=== PATIENT | male | born 1995 | race Hispanic/Latino ===

== ENCOUNTER 2021-10-05 22:06 | Emergency (ER) | payer MEDICAID ==
[~2021-10-05] VITALS: Ht 162.6 cm; Wt 74.4 kg
[~2021-10-05 22:06] MED LIST: ATOR40TA69 PO; INSU100C6 SQ; INSU100I26 SQ; METF-444 PO; PANT40TA55 PO; PRED20TA3 PO; SULF1TAB89 PO; TACR5CAP8 PO; TORS100T16 PO
[2021-10-05] MEDS ORDERED: HYDROCODONE/ACETAMINOPHEN 5/325 MG TAB PO ONE (23:00)
[2021-10-05] MEDS ORDERED: ACETAMINOPHEN WITH CODEINE 1 TAB TAB PO ONE (23:30)
[2021-10-05] MEDS ORDERED: ACET-2079 PO (23:36)
[2021-10-05] MEDS ORDERED: RIVA1TAB PO (23:36)
[2021-10-05] MEDS ORDERED: ENOXAPARIN SODIUM 80 MG/0.8 ML SQ SCH (23:45)
[2021-10-05 23:46] VITALS: BP 134/78
[2021-10-05] MEDS ORDERED: ENOXAPARIN SODIUM 100 MG/1 ML SQ ONE (23:50)
== END 2021-10-05 23:59 | disposition home or self-care (01) ==
LOC: EDH 22:06
DX: I82.621 Acute embolism and thrombosis of deep veins of right upper extremity (principal); E11.9 Type 2 diabetes mellitus without complications; E78.00 Pure hypercholesterolemia, unspecified; I10 Essential (primary) hypertension; Z79.4 Long term (current) use of insulin; Z79.52 Long term (current) use of systemic steroids; Z79.899 Other long term (current) drug therapy
CPT/HCPCS: 99284; 93971; 96372; J1650

== ENCOUNTER 2022-08-03 00:13 | Emergency (ER) | payer MEDICAID ==
[~2022-08-03] VITALS: Ht 162.6 cm; Wt 77.6 kg
[~2022-08-03 00:13] MED LIST changes: +ACET-2079 PO; +RIVA1TAB PO
[2022-08-03] MEDS ORDERED: ONDANSETRON 4MG INJ IVP ONE (01:30)
[2022-08-03] MEDS ORDERED: LACTATED RINGERS 1000ML 1,000 ML IV ONE (01:30)
[2022-08-03] MEDS ORDERED: FAMOTIDINE 20MG TAB PO ONE (01:30)
[2022-08-03] MEDS ORDERED: FAMOTIDINE 20MG VIAL IV ONE (01:40)
[2022-08-03] MEDS ORDERED: IBUPROFEN 200 MG TAB ONE (01:41)
[2022-08-03] MEDS ORDERED: IBUPROFEN 400 MG TABLET ONE (01:42)
[2022-08-03 01:46] LABS: BASOPHILS % (AUTO) 0.3 % (0.0-5.0); EOSINOPHILS % (AUTO) 0.1 % (0.0-8.0); HEMATOCRIT 44.8 % (42-54); LYMPHOCYTES % (AUTO) 3.8 % (21.0-51.0); MEAN CORPUSCULAR HEMOGLOBIN 26.5 pg (27.0-33.0); MEAN CORPUSCULAR HGB CONC 32.8 g/dL (32.0-36.0); MEAN CORPUSCULAR VOLUME 80.7 fL (79-99); MONOCYTES % (AUTO) 6.8 % (3.0-13.0); NEUTROPHILS % (AUTO) 87.9 % (40.0-77.0); PLATELET COUNT (AUTO) 347 K/uL (130-400); RED BLOOD CELL COUNT(AUTO) 5.55 MIL/uL (4.50-6.20); RED CELL DISTRIBUTION WIDTH 13.5 % (11.0-15.5); WHITE BLOOD COUNT (AUTO) 27.9 K/uL (4.8-10.8)
[2022-08-03 01:54] LABS: CARBON DIOXIDE 26 mmol/L (21-32); CHLORIDE 101 mmol/L (101-111); CREATININE 1.4 mg/dL (0.5-1.5); GLOMERULAR FILTR. RATE CALC 71 mL/min (>90); GLUCOSE,RANDOM 113 mg/dL (70-105); POTASSIUM 3.5 mmol/L (3.5-5.1); SODIUM SERUM 134 mmol/L (136-145); UREA NITROGEN, BLOOD 28 mg/dL (7-18)
[2022-08-03 01:58] LABS: ALANINE AMINOTRANSFERASE 14 U/L (12-78); ALBUMIN 0.9 g/dL (3.5-5.0); ASPARTATE AMINOTRANSFERASE 13 U/L (10-37); TOTAL PROTEIN, SERUM 5.2 g/dL (6.0-8.3)
[2022-08-03 02:01] LABS: LIPASE < 50 U/L (114-286)
[2022-08-03 02:02] LABS: APPEARANCE,URINE CLEAR (CLEAR); BILIRUBIN,URINE NEGATIVE (NEGATIVE); COLOR,URINE YELLOW (YELLOW); GLUCOSE, URINE (UA) NEGATIVE (NEGATIVE); KETONES,URINE NEGATIVE (NEGATIVE); LEUKOCYTE ESTERASE ,URINE NEGATIVE Leu/uL (NEGATIVE); NITRATE,URINE NEGATIVE (NEGATIVE); OCCULT BLOOD,URINE MODERATE (NEGATIVE); PROTEIN,URINE 600 mg/dL (NEGATIVE); UROBILINOGEN,URINE 0.2 mg/dL (0.2-1.0)
[2022-08-03 02:04] LABS: MUCUS,URINE RARE LPF (None Seen); RBC,URINE 0-1 /HPF (0-1); SQUAMOUS EPITHELIAL CELL,UR RARE /HPF (0-2); WBC,URINE 0-1 /HPF (0-1)
[2022-08-03 03:19] VITALS: BP 122/76
[2022-08-03] MEDS ORDERED: METRONIDAZOLE 500 MG TABLET PO SCH (03:30)
[2022-08-03] MEDS ORDERED: METR-172 PO (03:32)
[2022-08-03] MEDS ORDERED: ONDA4TAB10 PO (03:32)
== END 2022-08-03 04:07 | disposition home or self-care (01) ==
LOC: EDH 00:13
DX: A04.9 Bacterial intestinal infection, unspecified (principal); E11.9 Type 2 diabetes mellitus without complications; E78.00 Pure hypercholesterolemia, unspecified; I10 Essential (primary) hypertension; Z79.4 Long term (current) use of insulin; Z79.52 Long term (current) use of systemic steroids; Z79.84 Long term (current) use of oral hypoglycemic drugs; Z79.899 Other long term (current) drug therapy; Z20.822 Contact with and (suspected) exposure to COVID-19
CPT/HCPCS: 99284; 96374; 87635; 96361; 96375; 80053; 83690; 85025; 87804 ×2; 81001; 36415; 74021; C9803; J7120; J2405; S0028; J3490

== ENCOUNTER 2024-04-19 03:01 | Inpatient (IN) | payer MEDICAID ==
[2024-04-19] VITALS (37 sets, daily range): BP systolic 104–157; BP diastolic 63–96; PULSE 85–125; RESP 9–111; TEMP 97–99.1; O2SAT 96–98
[~2024-04-19] VITALS: Ht 162.6 cm; Wt 85.3 kg
[~2024-04-19 03:01] MED LIST changes: +METR-172 PO; +ONDA-243 PO
[2024-04-19] MEDS: TICAGrelor 90 MG TABLET PO ONE (03:26)
[2024-04-19] MEDS: TICAGrelor 90 MG TABLET ONE (03:26)
[2024-04-19] MEDS: ASPIRIN 325MG TAB PO ONE (03:27)
[2024-04-19] MEDS: HEParin 5,000 UNIT VIAL IV ONE (03:27)
[2024-04-19] MEDS: FENTanyl CITRate PF 50 MCG/1 ML 2ML VIAL ONE (03:29)
[2024-04-19] MEDS ORDERED: cloPIDOgrel 300MG TAB PO ONE (03:30)
[2024-04-19] MEDS: HEParin 25,000 UNITS/250ML D5W 250 ML IV SCH (03:30)
[2024-04-19] MEDS: HEParin 5,000 UNIT VIAL ONE (03:31)
[2024-04-19] MEDS: HEParin 25,000 UNITS/250ML D5W 250 ML IV ONE (03:31)
[2024-04-19] MEDS: FENTanyl CITRate PF 50 MCG/1 ML 2ML VIAL IVP ONE (03:32)
[2024-04-19 03:35] LABS: ABG BASE EXCESS 0.6 mmol/L (-2.0-3.0); ABG HCO3 22.7 mmol/L (21.0-28.0); ABG OXYGEN SATURATION 97.7 % (94.0-98.0); ABG PCO2 30 mmHg (35-48); ABG PH 7.495 (7.350-7.450); CARBON MONOXIDE 0.3 % (0.5-1.5); HHb 2.3; PO2, ARTERIAL BG 97.8 mmHg (83.0-108.0); VENT MODE, BG ROOMAIR (ROOM AIR)
--- NOTE | 2024-04-19 03:40 | ERN ---
General Chief Complaint: Chest Pain Stated Complaint: CHEST PAIN Time Seen by MD: 03:06 History of Present Illness Initial Comments 29-year-old male who presents for chest pain beginning about 90 minutes prior to arrival (began around 2:00 a.m. on 04/19/2024). Patient reports left-sided chest pressure radiates to the left shoulder. Moderate to severe. It has been constant for the last hour and a half or so. He denies any shortness of breath, dizziness, vomiting, diarrhea, sore throat or URI type symptoms. He denies any drug abuse. He has never had cardiac disease before. Medical history: Nephrotic syndrome (possibly autoimmune), diabetes, hypertension, high cholesterol Allergies: Coded Allergies: rituximab (Unverified Allergy, Mild, 09/27/21) SWELLING Home Meds Active Scripts Metronidazole (Metronidazole) 500 Mg Tablet, 500 MG PO TID for 10 Days, #30 TAB Prov:KATHLEEN GILL Sr., MD 08/03/22 Ondansetron (Ondansetron Odt) 4 Mg Tab.rapdis, 4 MG PO Q6HPRN PRN for nausea, #16 TAB 0 Refills Prov:KATHLEEN GILL Sr., MD 08/03/22 Acetaminophen with Codeine (Acetaminophen-Cod #3 Tablet) 1 Each Tablet, 1 TAB PO Q6H PRN for PAIN LEVEL 7 TO 10, #15 TAB Prov:DELGADO CARTER MD 10/05/21 Rivaroxaban (Xarelto) 1 Each Tab.ds.pk, 1 EACH PO AD, #1 KIT Prov:DELGADO CARTER MD 10/05/21 Pantoprazole Sodium (Protonix) 40 Mg Ectab, 40 MG PO DAILY for 90 Days, #90 TAB.EC Prov:MORENO DAILEY Jr., MD 10/01/21 Prednisone (Prednisone) 20 Mg Tablet, 60 MG PO DAILY for 30 Days, #90 TAB Prov:MORENO DAILEY Jr., MD 10/01/21 Atorvastatin Calcium (LIPITOR) 40 Mg Tablet, 40 MG PO HS for 90 Days, #90 TAB Prov:MORENO DAILEY Jr., MD 10/01/21 Reported Medications Metformin HCl (Metformin HCl) 500 Mg Tablet, 500 MG PO BID, TAB 09/27/21 Tacrolimus (Tacrolimus) 5 Mg Capsule, 5 MG PO BID, CAP 09/27/21 Insulin Aspart (Novolog) 100 Unit/1 Ml Cartridge, 10 UNITS SQ TIDMEALS, CARTRIDGE 09/27/21 Torsemide (Torsemide) 100 Mg Tablet, 100 MG PO DAILY, TAB 09/27/21 Sulfamethoxazole/Trimethoprim (Sulfamethoxazole-Tmp Ss Tablet) 1 Each Tablet, 1 EACH PO BID, TAB 09/27/21 Insulin Glargine,Hum.rec.anlog (Basaglar Kwikpen U-100) 100 Unit/1 Ml Insuln.pen, 50 UNIT SQ DAILY, SYRINGE 09/27/21 Past Medical History Past Medical History: Diabetes-Type II, High Cholesterol, Hypertension, Other Medical History Other: NEPHROTIC SYNDROME Past Surgical History: None Surgical History Other: KIDNEY BIOPSY Social History Social History: Negative, Lives with family ROS Dictation CONSTITUTIONAL: No chills, no fever, no weakness, no diaphoresis, no malaise. HEAD/FACE: No signs of trauma. EENT: No eye pain, no blurred vision, no tearing, no double vision, no ear pain, no ear discharge, no nose pain, no nasal congestion, no throat pain, no throat swelling, no mouth pain. RESPIRATORY: No cough, no orthopnea, no SOB, no stridor, no wheezing. CARDIOVASCULAR: Chest pain GASTROINTESTINAL/ABDOMINAL: No abdominal pain, no constipation, no diarrhea, no nausea, no vomiting. GENITOURINARY: No abnormal discharge, no dysuria, no frequent urination, no hematuria. No complaints of pain in the genitals. MUSCULOSKELETAL: No back pain, no gout, no joint pain, no joint swelling, no muscle pain, no muscle stiffness, no neck pain. INTEGUMENTARY: No change in color, no change in hair/nails, no dryness, no lesion, no lumps, no rash. NEUROLOGICAL/PSYCH: No anxiety, not depressed, no emotional problem, no headache, no numbness, no pre-existing deficit, no history of seizures, no tremors, no weakness. HEMATOLOGIC/LYMPHATIC: Not anemic, no history of blood clots, no apparent bleeding, no bruising, glands not swollen. All Systems Negative, Except as Noted. Physical Exam Physical Exam Dictation VITAL SIGNS: Reviewed. GENERAL APPEARANCE: Alert, oriented x3, moderate distress due to pain HEAD AND FACE: Non-traumatic. EYES: PERRL, pink conjunctivas, eyelid no trauma, anterior chamber clear. EARS: Pinnas intact and no signs of trauma or erythema. Ear canals clear and no discharge. TMs no erythema. NOSE: No discharge, no bleeding. OROPHARYNX: Mouth normal, teeth no caries, tongue pink. Pharynx clear, no erythema. Tonsils no exudates, no abscesses noted. Mucous membrane moist. NECK: Supple, non-tender, no thyromegaly, no masses, no JVD, no bruits. BREAST: Deferred. CHEST: No tenderness, no crepitus, no paradoxical movement, no retractions. LUNGS: Clear, well-ventilated, symmetric, no rales, no wheezing, no rhonchi, no stridor, good breath sounds bilaterally. HEART: Regular rate, regular rhythm, no murmur, no gallops. VASCULAR: No peripheral edema. ABDOMEN: Soft, positive bowel sounds, nondistended, no guarding, nontender, no rebound, no masses no hepatomegaly, no splenomegaly, no Wilson's sign, no hernias. RECTAL: Deferred. GENITAL: Deferred. NEUROLOGICAL: Normal speech, gross motor function intact, gross sensory function intact. MUSCULOSKELETAL: Neck nontender, full range of motion, back nontender, full range of motion. EXTREMITIES: Nontender, full range of motion. SKIN: Color pink, dry, no turgor, no rash, no lacerations, no abrasions, no contusions. LYMPHATICS: Deferred. Results Laboratory and Microbiology Lab and Micro Result Laboratory Tests Test 04/19/24 03:05 04/19/24 03:15 04/19/24 03:34 Whole Blood Glucose 191 MG/DL (70-110) H White Blood Count 22.7 K/uL (4.8-10.8) H Red Blood Count 6.27 MIL/uL (4.50-6.20) H Hemoglobin 16.4 g/dL (14.0-18.0) Hematocrit 51.0 % (42-54) Mean Corpuscular Volume 81.3 fL (79-99) Mean Corpuscular Hemoglobin 26.2 pg (27.0-33.0) L Mean Corpuscular Hemoglobin Concent 32.2 g/dL (32.0-36.0) Red Cell Distribution Width 13.7 % (11.0-15.5) Platelet Count 457 K/uL (130-400) H Mean Platelet Volume 9.8 fL (7.5-10.5) Immature Granulocyte % (Auto) 1.0 % (0-1) Neutrophils (%) (Auto) 69.7 % (40.0-77.0) Lymphocytes (%) (Auto) 21.9 % (21.0-51.0) Monocytes (%) (Auto) 6.5 % (3.0-13.0) Eosinophils (%) (Auto) 0.5 % (0.0-8.0) Basophils (%) (Auto) 0.4 % (0.0-5.0) Neutrophils # (Auto) 15.8 K/uL (1.8-7.7) H Lymphocytes # (Auto) 5.0 K/uL (1.0-4.8) H Monocytes # (Auto) 1.5 K/uL (0.1-1.0) H Eosinophils # (Auto) 0.11 K/uL (0.00-0.70) Basophils # (Auto) 0.09 K/uL (0.00-0.20) Absolute Immature Granulocyte (auto 0.23 K/uL (0-1) Nucleated Red Blood Cells 0.0 % (0.0-0.19) Prothrombin Time 10.5 SEC (9.6-11.6) Prothromb Time International Ratio <= 0.93 (0.85-1.15) Activated Partial Thromboplast Time 24.5 SEC (26.3-35.5) L Sodium Level 139 mmol/L (136-145) Potassium Level 3.7 mmol/L (3.5-5.1) Chloride Level 103 mmol/L (101-111) Carbon Dioxide Level 33 mmol/L (21-32) H Blood Urea Nitrogen 33 mg/dL (7-18) H Creatinine 1.3 mg/dL (0.5-1.3) Glomerular Filtration Rate Calc 77 mL/min (>90) Random Glucose 198 mg/dL (70-105) H Total Calcium 7.7 mg/dL (8.5-10.1) L Troponin I High Sensitivity 77 ng/L (4-75) *H Blood Gas Specimen Type Arterial Arterial Blood pH 7.495 (7.350-7.450) Arterial Blood Partial Pressure CO2 30 mmHg (35-48) L Arterial Blood Partial Pressure O2 97.8 mmHg (83.0-108.0) Arterial Blood HCO3 22.7 mmol/L (21.0-28.0) Arterial Blood Oxygen Saturation 97.7 % (94.0-98.0) Arterial Blood Base Excess 0.6 mmol/L (-2.0-3.0) Hemoglobin (Blood Gas) 16.3 g/dL (13.5-17.5) Sodium (Blood Gas) 134 MMOL/L (136-145) L Bedside Potassium (Blood Gas) 3.8 MMOL/L (3.4-4.5) Bedside Chloride (Blood Gas) 103 MMOL/L (98-107) Bedside Glucose (Blood Gas) 219 MG/DL (65-95) H Bedside Ionized Calcium (Blood Gas) 1.18 MMOL/L (1.15-1.33) Bedside Lactic Acid (Blood Gas) 1.92 MMOL/L (0.36-0.75) H Blood Gas Temperature 37.0 CELSIUS (35.5-37.0) Blood Gas Vent Mode ROOMAIR (ROOM AIR) FiO2 21.0 % Blood Gas Specimen Comment RB [facility] CC: Chest pain Historian: Patient Limitations by social determinants of health: None Comorbidities: Nephritic syndrome possibly autoimmune mediated, immunosuppression therapy, diabetes, hypertension, high cholesterol Differential diagnosis: ACS, PE, cocaine abuse, electrolyte abnormality, infectious disease, other. Initial vital signs: Mild hypertension 143/92, otherwise stable and remained stable in the ER. I was evaluated the patient, in an EKG was performed. It was a STEMI. EKG ( independently interpreted by me ): Sinus rhythm, rate of 82, normal axis, good R-wave progression. ST-elevation leads two three AVF, proximally for small boxes. Reciprocal ST depression leads one and aVL. I contacted the on-call sewage reticulation drafting officer, Dr. Villaseñor. He reviewed the EKG. He recommends activating the dairy laboratory technician. cardiac cath lab technologist activated. Patient given aspirin, Brilinta, heparin, fentanyl IV. ABG this unremarkable, electrolytes are all stable. Patient went to the dairy laboratory technician immediately. Hospitalist consulted for an admission. ED Course Orders Procedure Category Date Status Time Cbc With Differential LAB 04/19/24 Complete 03:03 Basic Metabolic Panel LAB 04/19/24 Complete 03:03 Troponin I High LAB 04/19/24 Complete Sensitivity 03:03 Pt And Ptt LAB 04/19/24 Complete 03:03 Urinalysis Profile LAB 04/19/24 Logged 03:03 Drug Screen Urine LAB 04/19/24 Logged 03:03 12 Lead Ekg Tracing- EKG 04/19/24 Logged Technical 03:03 Chest 1vw RAD 04/19/24 Taken 03:03 Arterial Blood Gas RT 04/19/24 Transmitted 03:06 Heparin 5,000 Unit PHA 04/19/24 Complete Vial (Heparin 5,000 U 03:18 Heparin 25,000 PHA 04/19/24 Complete Units/250ml D5w 03:19 Aspirin 325mg Tab PHA 04/19/24 Complete (Aspirin 325mg Tab) 03:30 Heparin 5,000 Unit PHA 04/19/24 Complete Vial (Heparin 5,000 U 03:30 Heparin 25,000 PHA 04/19/24 In Process Units/250ml D5w 03:30 Clopidogrel 300mg Tab PHA 04/19/24 Complete (Plavix 300mg Tab) 03:30 Fentanyl Citrate Pf PHA 04/19/24 Complete 0.05 Mg/Ml (Fentanyl 03:30 12 Lead Ekg Tracing- EKG 04/19/24 Logged Technical 03:20 12 Lead Ekg Tracing- EKG 04/19/24 Logged Technical 03:20 Ticagrelor (Brilinta) PHA 04/19/24 Complete 03:30 Director Women Procedure CATH 04/19/24 In Process Request 03:30 Ticagrelor (Brilinta) PHA 04/19/24 Complete 03:23 Director Women Procedure CATH 04/19/24 Logged Request 03:24 Fentanyl Citrate Pf PHA 04/19/24 Complete 0.05 Mg/Ml (Fentanyl 03:26 Arterial Blood Gas LAB 04/19/24 Complete Arterial + 03:34 Admit Orders ADM 04/19/24 Transmitted 03:41 Lidocaine Hcl PHA 04/19/24 Complete 400mg/20ml (Lidocaine 03:51 Iohexol (Omnipaque) PHA 04/19/24 Complete 03:51 Verapamil Hcl PHA 04/19/24 Complete (Calan/Isoptin) 03:51 Heparin 10,000 PHA 04/19/24 Complete Unit/10ml (Heparin 03:51 Heparin-Ns 1,000 PHA 04/19/24 Complete Unit/500 Ml 03:51 Nitroglycerin 50mg PHA 04/19/24 Complete Vial (Tridil 50mg/10m 03:51 Fentanyl Citrate Pf PHA 04/19/24 Complete 0.05 Mg/Ml (Fentanyl 04:10 Midazolam Hcl (Versed) PHA 04/19/24 Complete 04:10 Midazolam Hcl (Versed) PHA 04/19/24 Complete 04:24 Eptifibatide PHA 04/19/24 Complete (Integrilin) 04:33 Eptifibatide PHA 04/19/24 Complete 75mg/100ml Bottle 04:33 Atropine 1mg Syg PHA 04/19/24 Complete (Atropine 1mg Syg) 04:33 Eptifibatide PHA 04/19/24 Complete (Integrilin) 04:39 Heparin-Ns 1,000 PHA 04/19/24 Complete Unit/500 Ml 04:43 Iohexol (Omnipaque) PHA 04/19/24 Complete 04:43 Current Medications Medications (Trade) Dose Ordered Sig/Madeline Route PRN Reason Start Time Stop Time Status Last Admin Dose Admin Aspirin (Aspirin 325mg Tab) 325 mg ONCE ONCE PO 04/19/24 03:30 04/19/24 03:31 DC 04/19/24 03:27 Atropine Sulfate (Atropine 1mg Syg) 1 mg STK-MED ONCE IVP 04/19/24 04:33 04/19/24 04:34 DC Clopidogrel Bisulfate (plaVIX 300MG TAB) 600 mg ONCE ONCE PO 04/19/24 03:30 04/19/24 03:22 DC Eptifibatide 100 ml @ As Directed STK-MED ONCE IV 04/19/24 04:33 04/19/24 04:33 DC Eptifibatide (Integrilin) 20 mg STK-MED ONCE IVP 04/19/24 04:33 04/19/24 04:33 DC Eptifibatide (Integrilin) 20 mg STK-MED ONCE IVP 04/19/24 04:39 04/19/24 04:39 DC Fentanyl Citrate (FENTanyl CITRate PF 50 MCG/ 1 ML 2ML VIAL) 50 mcg ONCE ONCE IVP 04/19/24 03:30 04/19/24 03:31 DC 04/19/24 03:32 Fentanyl Citrate (FENTanyl CITRate PF 50 MCG/ 1 ML 2ML VIAL) 100 mcg STK-MED ONCE .ROUTE 04/19/24 03:26 04/19/24 03:26 DC Fentanyl Citrate (FENTanyl CITRate PF 50 MCG/ 1 ML 2ML VIAL) 100 mcg STK-MED ONCE .ROUTE 04/19/24 04:10 04/19/24 04:11 DC Heparin Sodium (Porcine) (HEParin 10,000 UNIT/10ML) 10,000 unit STK-MED ONCE .ROUTE 04/19/24 03:51 04/19/24 03:51 DC Heparin Sodium (Porcine) (HEParin 5,000 UNIT VIAL) 5,000 unit ONCE ONCE IV 04/19/24 03:30 04/19/24 03:31 DC 04/19/24 03:27 Heparin Sodium (Porcine) (HEParin 5,000 UNIT VIAL) 5,000 unit STK-MED ONCE .ROUTE 04/19/24 03:18 04/19/24 03:18 DC Heparin Sodium/ Dextrose 250 ml @ As Directed STK-MED ONCE IV 04/19/24 03:19 04/19/24 03:19 DC Heparin Sodium/ Dextrose 250 ml @ 0 mls/hr PROTOCOL IV 04/19/24 03:30 05/19/24 03:29 04/19/24 03:30 Heparin Sodium/ Sodium Chloride 500 ml @ As Directed STK-MED ONCE IV 04/19/24 04:43 04/19/24 04:43 DC Heparin Sodium/ Sodium Chloride 1,000 ml @ As Directed STK-MED ONCE IV 04/19/24 03:51 04/19/24 03:52 DC Iohexol (Omnipaque) 75 ml STK-MED ONCE IV 04/19/24 04:43 04/19/24 04:44 DC Iohexol (Omnipaque) 35,000 mg STK-MED ONCE IV 04/19/24 03:51 04/19/24 03:51 DC Lidocaine HCl (Lidocaine HCl 400mg/20ml) 20 ml STK-MED ONCE .ROUTE 04/19/24 03:51 04/19/24 03:51 DC Midazolam HCl (Versed) 2 mg STK-MED ONCE .ROUTE 04/19/24 04:10 04/19/24 04:11 DC Midazolam HCl (Versed) 2 mg STK-MED ONCE .ROUTE 04/19/24 04:24 04/19/24 04:24 DC Nitroglycerin (Tridil 50mg/ 10ml) 50 mg STK-MED ONCE .ROUTE 04/19/24 03:51 04/19/24 03:52 DC Ticagrelor (BRILinta) 90 mg STK-MED ONCE .ROUTE 04/19/24 03:23 04/19/24 03:24 DC Ticagrelor (BRILinta) 180 mg ONCE ONCE PO 04/19/24 03:30 04/19/24 03:31 DC 04/19/24 03:26 Verapamil HCl (Calan/Isoptin) 5 mg STK-MED ONCE .ROUTE 04/19/24 03:51 04/19/24 03:51 DC Vital Signs Date Time Temp Pulse Resp B/P (MAP) Pulse Ox O2 Delivery O2 Flow Rate FiO2 04/19/24 03:36 96 18 143/92 97 Room Air* 0 21 04/19/24 03:13 69 19 149/99 97 Room Air* 0 21 04/19/24 03:05 97.5 82 18 167/99 98 Room Air 0 DX & DISP Disposition: Inpatient Departure Impression: Primary Impression: STEMI (ST elevation myocardial infarction) Critical Time: 30 minutes (Critical Care Procedure NoteAuthorized and Performed by: meTotal critical care time: Approximately 36 minutesDue to a high probability of clinically significant, life threatening deterioration, the patient required my highest level of preparedness to intervene emergently and I personally spent this critical care time directly and personally managing the patient. This critical care time included obtaining a history; examining the patient; pulse oximetry; ordering and review of studies; arranging urgent treatment with development of a management plan; evaluation of patient's response to treatment; frequent reassessment; and, discussions with other providers.This critical care time was performed to assess and manage the high probability of imminent, life-threatening deterioration that could result in multi-organ failure. It was exclusive of separately billable procedures and treating other patients and teaching time.Please see MDM section and the rest of the note for further information on patient assessment and treatment.) Condition: Stable Referrals: RIKI CADENA (PCP) DARON MARSH DO Apr 19, 2024 03:40
[2024-04-19 03:44] LABS: BASOPHILS # (AUTO) 0.09 K/uL (0.00-0.20); BASOPHILS % (AUTO) 0.4 % (0.0-5.0); EOSINOPHILS # (AUTO) 0.11 K/uL (0.00-0.70); EOSINOPHILS % (AUTO) 0.5 % (0.0-8.0); IMMATURE GRANULOCYTE ABSOLUTE 0.23 K/uL (0-1); LYMPHOCYTES % (AUTO) 21.9 % (21.0-51.0); MEAN CORPUSCULAR HEMOGLOBIN 26.2 pg (27.0-33.0); MEAN CORPUSCULAR HGB CONC 32.2 g/dL (32.0-36.0); MEAN CORPUSCULAR VOLUME 81.3 fL (79-99); MONOCYTES # (AUTO) 1.5 K/uL (0.1-1.0); MONOCYTES % (AUTO) 6.5 % (3.0-13.0); NEUTROPHILS # (AUTO) 15.8 K/uL (1.8-7.7); NEUTROPHILS % (AUTO) 69.7 % (40.0-77.0); PLATELET COUNT (AUTO) 457 K/uL (130-400); RED BLOOD CELL COUNT(AUTO) 6.27 MIL/uL (4.50-6.20); RED CELL DISTRIBUTION WIDTH 13.7 % (11.0-15.5); WHITE BLOOD COUNT (AUTO) 22.7 K/uL (4.8-10.8)
--- NOTE | 2024-04-19 03:49 | NUR ---
DR RICHARDS AND BREAKING MACHINE OPERATOR NURSE IN ROOM TO SEE PATIENT
[2024-04-19 03:51] LABS: CREATININE 1.3 mg/dL (0.5-1.3); POTASSIUM 3.7 mmol/L (3.5-5.1)
[2024-04-19] MEDS ORDERED: NITROGLYCERIN 50MG VIAL ONE (03:51)
[2024-04-19] MEDS ORDERED: HEParin 10,000 UNIT/10ML (1,000 UNIT/ML) VIAL ONE (03:51)
[2024-04-19] MEDS ORDERED: HEParin-NS 1,000 UNIT/500 ML 1,000 ML IV ONE (03:51)
[2024-04-19] MEDS ORDERED: LIDOCAINE HCL 400MG/20ML VIAL ONE (03:51)
[2024-04-19] MEDS ORDERED: IOHEXOL 350 MG/ML 100ML INFUS..BTL IV ONE (03:51)
[2024-04-19] MEDS ORDERED: VERAPAMIL HCL 2.5 MG/ML VIAL ONE (03:51)
--- NOTE | 2024-04-19 03:55 | NUR ---
PATIENT TAKEN TO DO[facility]ATHER BY DOG BATHER NURSE, REPORT GIVEN
[2024-04-19 03:56] LABS: INR <= 0.93 (0.85-1.15); PROTHROMBIN TIME 10.5 SEC (9.6-11.6)
[2024-04-19 03:57] LABS: PARTIAL THROMBOPLASTIN TIME 24.5 SEC (26.3-35.5)
[2024-04-19] MEDS ORDERED: MIDAZOLAM HCL 1 MG/ML 2ML VIAL ONE ×2 (04:10→04:24)
[2024-04-19] MEDS ORDERED: FENTanyl CITRate PF 50 MCG/1 ML 2ML VIAL ONE (04:10)
[2024-04-19] MEDS ORDERED: ATROPINE 1MG SYG IVP ONE (04:33)
[2024-04-19] MEDS ORDERED: EPTIFIBATIDE 2 MG/ML 10 ML VIAL IVP ONE ×3 (04:33→05:14)
[2024-04-19] MEDS ORDERED: EPTIFIBATIDE 75MG/100ML BOTTLE 100 ML IV ONE (04:33)
[2024-04-19] MEDS ORDERED: IOHEXOL-350 75 ML VIAL IV ONE ×3 (04:43→05:27)
[2024-04-19] MEDS ORDERED: HEParin-NS 1,000 UNIT/500 ML 500 ML IV ONE (04:43)
[2024-04-19] MEDS ORDERED: niCARDIpine 25MG INJ IV ONE (05:16)
[2024-04-19] MEDS: EPTIFIBATIDE 75MG/100ML BOTTLE 100 ML IV STA (05:59)
[2024-04-19] MEDS ORDERED: GLUCAGON 1MG KIT 1 MG ML IM PRN ×2 (06:00→13:30)
[2024-04-19] MEDS ORDERED: DEXTROSE 50%-WATER 50 ML DISP.SYRIN IV PRN ×2 (06:00→13:30)
--- NOTE | 2024-04-19 06:21 | CONS ---
[facility] CARDIOLOGY CONSULTATION NOTE Date Patient Seen: Apr 19, 2024 Time of Visit: 06:03 Reason for Consultation: [STEMI] History of Present Illness: [ 29-year-old male with a past medical history of nephrotic syndrome on chronic prednisone, hypertension, hyperlipidemia, type 2 diabetes, obesity, who presented to [facility] with acute onset of anterior chest pressure with a awoke him from his sleep. Patient states that around 145 a.m. this morning he was awoken with severe 8/10 severity chest pressure which was nonradiating and was associated with shortness for breath and cold sweats. On arrival to [facility] his presenting ECG revealed significant inferior ST elevations with reciprocal ST depressions. On review of prior ECGs this is a new finding and code STEMI was activated. Patient was started on ACS protocol (IV heparin bolus and infusion, 180 mg of ticagrelor, aspirin 324 mg) and was taken to the cathode builder emergently where he underwent coronary angiogram. We attempted to perform right radial approach but given significant radial spasm we transitioned to the femoral approach and patient was found to have a 95% distal RCA and 100% thrombotic distal PLB. He underwent successful PTCA/PCI of the distal RCA x1 (3.5 x 18 mm JOAQUIN). Given his significant tortuosity and distal thrombotic occlusion despite aggressive catheters and max support we are unable to perform thrombectomy of the distal PLB. Patient received double bolus and infusion of Integrilin as well as intracoronary Integrilin. Postprocedural patient's chest pain improved to a 4/10 in severity he remained hemodynamically stable and afebrile no distress. Patient denies a history of CAD/mi or a family history of premature CAD. He is a never smoker and denies ETOH/drug abuse. Cardiology was consulted for STEMI] Past Medical History: [Refer to HPI ] Past Surgical History: [Refer to chart ] Family History: [ Refer to chart] Social History: [Refer to chart ] Habits: [Never] smoker. [Denies] alcohol consumption. [Denies] illicit drug use Review of Systems: Review of 12 point systems is negative except per HPI Physical Examination: GENERAL: [No acute distress.] HEAD: [Normal with no signs of head trauma.] EYES: [PERRLA, EOMI, conjunctiva and sclera normal.] ENT: [Hearing grossly intact, normal oropharynx.] NECK: [Supple without JVD. There is no tenderness, lymphadenopathy, or masses. No thyromegaly. Normal carotid upstrokes without bruits.] LUNGS: [Clear breath sounds bilaterally.. No wheezes, or rhonchi.] HEART: [Normal rate and rhythm. Normal S1 and S2 without mumurs, gallop or rub.] VASC: [Peripheral pulses +2 bilaterally.] ABD: [Bowel sounds normal, soft, nontender, no masses, no organomegaly. No audible bruits.] : [Not examined] LYMPH: [No lymphadenopathy noted.] EXT: [No clubbing, cyanosis or edema.] SKIN: [No rashes or lesions noted.] NEURO: [Awake, alert, and oriented x3. No focal sensory or strength deficits noted.] Vital Signs (last 8hr) Date Time Temp Pulse Resp B/P (MAP) Pulse Ox O2 Delivery O2 Flow Rate FiO2 04/19/24 03:36 96 18 143/92 97 Room Air* 0 21 04/19/24 03:13 69 19 149/99 97 Room Air* 0 21 04/19/24 03:05 97.5 82 18 167/99 98 Room Air 0 Laboratory: [ ] Hematology Labs: Test 04/19/24 03:15 Range/Units White Blood Count 22.7 H 4.8-10.8 K/uL Red Blood Count 6.27 H 4.50-6.20 MIL/uL Hemoglobin 16.4 14.0-18.0 g/dL Hematocrit 51.0 42-54 % Mean Corpuscular Volume 81.3 79-99 fL Mean Corpuscular Hemoglobin 26.2 L 27.0-33.0 pg Mean Corpuscular Hemoglobin Concent 32.2 32.0-36.0 g/dL Red Cell Distribution Width 13.7 11.0-15.5 % Platelet Count 457 H 130-400 K/uL Mean Platelet Volume 9.8 7.5-10.5 fL Immature Granulocyte % (Auto) 1.0 0-1 % Neutrophils (%) (Auto) 69.7 40.0-77.0 % Lymphocytes (%) (Auto) 21.9 21.0-51.0 % Monocytes (%) (Auto) 6.5 3.0-13.0 % Eosinophils (%) (Auto) 0.5 0.0-8.0 % Basophils (%) (Auto) 0.4 0.0-5.0 % Neutrophils # (Auto) 15.8 H 1.8-7.7 K/uL Lymphocytes # (Auto) 5.0 H 1.0-4.8 K/uL Monocytes # (Auto) 1.5 H 0.1-1.0 K/uL Eosinophils # (Auto) 0.11 0.00-0.70 K/uL Basophils # (Auto) 0.09 0.00-0.20 K/uL Absolute Immature Granulocyte (auto 0.23 0-1 K/uL Nucleated Red Blood Cells 0.0 0.0-0.19 % Chemistry Labs: Test 04/19/24 03:15 04/19/24 03:05 Range/Units Sodium Level 139 136-145 mmol/L Potassium Level 3.7 3.5-5.1 mmol/L Chloride Level 103 101-111 mmol/L Carbon Dioxide Level 33 H 21-32 mmol/L Blood Urea Nitrogen 33 H 7-18 mg/dL Creatinine 1.3 0.5-1.3 mg/dL Glomerular Filtration Rate Calc 77 >90 mL/min Random Glucose 198 H 70-105 mg/dL Total Calcium 7.7 L 8.5-10.1 mg/dL Troponin I High Sensitivity 77 *H 4-75 ng/L Whole Blood Glucose 191 H 70-110 MG/DL Coagulation Labs: Test 04/19/24 03:15 Range/Units Prothrombin Time 10.5 9.6-11.6 SEC Prothromb Time International Ratio <= 0.93 0.85-1.15 Activated Partial Thromboplast Time 24.5 L 26.3-35.5 SEC Diagnostics / Radiology: [Copy/Paste Echos/Imaging Report here] Assessment: [Inferior STEMI Nephrotic syndrome on chronic steroids Type 2 diabetes Hypertension Hyperlipidemia Obesity ] Plan: #Inferior STEMI: Patient presenting to [facility] due to severe 8/10 anterior chest pressure accompanied with diaphoresis awakened him from sleep Presenting ECG revealed significant inferior ST elevations with reciprocal ST depressions which was a new change compared to prior ECGs Code STEMI was activated he was initiated on ACS protocol (IV bolus and infusion of heparin, 180 mg of ticagrelor, 324 mg of aspirin) Patient was taken to the cathode builder emergently as found to have a critical 90-95% distal thrombotic lesion within the RCA and 100% distal thrombotic occlusion of the PLB Patient underwent successful PTCA/PCI of the distal RCA x1 (3.5 x 18 mm oleksandr Sumner drug-eluting stent). We are unable to perform aspiration thrombectomy of his distal PLV due to severe tortuosity and lack of guide catheter support Patient was provided with double bolus of IV Integrilin and infusion during the procedure. Moreover, he received intracoronary Integrilin bolus infusion via distal microcatheter injection Following procedure patient's symptoms resolved. He remained hemodynamically stable in no distress We will continue IV Integrilin postprocedure for a total of 16 hours given his thrombotic lesions and we will monitor his access site for bleeding Please order formal 2D echocardiogram to assess systolic and valvular function Patient will require 12 months adapt (aspirin 81 mg q.day/ticagrelor 90 mg b.i.d.) in addition to Lipitor 40 mg q.h.s. and Coreg 6.25 mg b.i.d. Please keep patient on telemetry. Monitor/replace electrolytes as needed #HTN: Systolic blood pressures averaging 140s to 150s We will initiate losartan 25 mg q.day in addition to Coreg 6.25 mg b.i.d. Thank you for this consult. Cardiology continued to follow along pending optimization of antihypertensives and 2D echocardiogram results Kayla richards MD ] KAYLA RICHARDS MD Apr 19, 2024 06:21
--- NOTE | 2024-04-19 06:29 | PRN ---
PROCEDURE REPORT DATE OF PROCEDURE: Apr 19, 2024 KENNEL TECHNICIAN: [Kayla briones MD ] PROCEDURE PERFORMED: Conscious sedation Ultrasound guided right radial artery access (aborted due to severe right radial artery was spasm) Ultrasound guided right femoral arterial access Selective right iliofemoral angiography Selective left coronary artery angiogram Selective right coronary artery angiogram Left heart catheterization Status post successful PTCA/PCI of the distal RCA x1 (3.5 x 18 mm oleksandr [place] drug-eluting stent) Failed aspiration thrombectomy of the distal left PLB TR band 13 sami over right radial artery INDICATION: Inferior STEMI DESCRIPTION OF PROCEDURE: After informed consent was obtained, the patient was prepped and draped in the usual sterile fashion. We obtained access in the right radial artery under ultrasound guidance with 1st wall past puncture. We are unable to traverse a guidewire beyond the antecubital fossa due to severe spasm. At this time we transitioned to the femoral approach and access was obtained via the right common femoral artery under ultrasound guidance using the micropuncture technique. A 6 [place] arterial sheath was inserted in the right femoral artery using ultrasound guidance with first pass wall puncture. The arterial sheath was aspirated and flushed and we performed a right iliofemoral angiography. A 6 [place]ian JL 3.5 was then advanced to the ascending aorta over an exchange length J-tip guidewire, was aspirated and flushed, and was used for selective coronary angiograms in multiple obliquities. A JR-4 guide was advanced in a similar fashion to the ascending aorta over the J-tipped guidewire and was used for selective right coronary angiograms in multiple oblique views with findings as outlined below. The JR-4 catheter advanced into the LV and pressures were obtained with a pull-back across the aortic valve. Following review of all the angiographic images decision was made to intervene on patient's thrombotic distal RCA and PLV occlusions. We provided a total of 8000 units of IV heparin and following therapeutic ACT we advanced a [place] into the distal PDA under fluoroscopic guidance. We pre-dilated the distal RCA using a three by 15 mm compliant balloon which was inflated to 14 SAMI. We then deployed a 3.5 x 18 mm oleksandr [place] drug-eluting stent to nominal pressures in the distal RCA. At this time we obtained a 2nd guidewire (014 in run-through) which was advanced in similar fashion but redirected into the distal PLB. We attempted to advance penumbra thrombectomy catheter but were met with significant resistance in the distal RCA due to severe tortuosity. At this time we removed the penumbra catheter and advanced a six [place]ian GuideLiner and removed the PDA wire. We then advanced a microcatheter over the wire into the distal PLV and removed the run- through wire and performed a distal contrast injection through the microcatheter confirming we are true lumen within the thrombus. At this time we provided intracoronary bolus of IV Integrilin through the microcatheter within the PLV. We then advanced a 014 in iron man supportive wire into the distal PLV. We advanced the guide liner into the distal RCA and despite this along with the supportive guidewire we are unable to advance the aspiration catheter. We noted worsening ST elevations and significant wire bias. We retracted the iron man the ST elevations improved and at this point we decided to terminate the procedure and continue with IV Integrilin infusion for a total of 16 hours. Patient tolerated procedure well with resolution of the chest pain. All wires and catheters removed from the body and a six [place]ian Perclose was deployed of the right common femoral artery with patent hemostasis. Patient was transferred to laborer tanbark holding in stable condition . FLUOROSCOPY TIME: 25.3 min LEFT HEART HEMODYNAMICS: LVEDP 26 mm Hg and no gradient Ao CORONARY ANGIOGRAM: LEFT MAIN: Patent and 0% stenosis. Gives rise to LCx, RI and LAD. LEFT ANTERIOR DESCENDING: Large vessel giving rise to two Diagonal branches. Luminal irregularities with ONIEL three flow. The diagonals are widely patent. RAMUS INTERMEDIUS: Patent with luminal irregularities LEFT CIRCUMFLEX: Large and gives rise to two OM branches. 0% stenosis. RIGHT CORONARY ARTERY: Large, dominant vessel giving rise to PDA and PL branches. 90-95% distal thrombotic lesion. PDA is widely patent. PLB had 100% thrombotic occlusion distally HEMOSTASIS: TR band 12 sami over right radial artery INTERVENTIONS: Status post successful PTCA/PCI of the distal RCA x1 (3.5 x 18 mm oleksandr [place] drug-eluting stent) Failed aspiration thrombectomy of the distal left PLB COMPLICATIONS: None FINDINGS: Normal coronary anatomy and severe thrombotic obstructive RCA disease. ESTIMATED BLOOD LOSS: 5 cc RECOMMENDATIONS/INSTRUCTIONS: Aggressive risk factor modification. Patient required 12 months dapt (aspirin 81 mg q.day/ticagrelor 90 mg b.i.d.) in addition to high-intensity statin therapy and beta-anatoly Given patient's underlying nephrotic syndrome which makes him hypercoagulable we will consider prolonged dapt Continue IV Integrilin infusion for 16 hours postprocedure and monitor access site for bleeding Formal 2D echocardiogram to assess systolic and valvular function CONTRAST DELIVERED TO PATIENT (mL): 290cc KAYLA Kilgore MD, MD Apr 19, 2024 06:29
--- NOTE | 2024-04-19 07:10 | NUR ---
0615 am pt arrived from grinding and polishing laborer after CODE STEMI - Dr. briones clinical supervisor placed stent in the RCA, distal RCA continues to be occluded will continue with Integrilin 2mcg continues x16 hrs. Dr. briones came at bedside at 0645 spoke to pt and nurse. new order echo to be done today and continue with grinding and polishing laborer orders, bedrest for 6hrs till noon, can get up in the chair. no pain noted. resp even and unlabored no distress at room air vitals normal see vital mars, right groin utilized for intervention soft and intact no hematoma noted. pulses to bilateral lower ext dorsalis and pedis +2 palatable. Mother was updated and father visited at bedside. alert and oriented x4. Report given to cristi ayon.
--- NOTE | 2024-04-19 08:15 | NUR ---
DR. Kelin RICHARDS CALLED IN REFERENCE TO HEPARIN PROTOCOL. STATED HEPARIN CAN BE DISCONTINUED AND ONLY INTEGRILIN TO BE INFUSED.
[2024-04-19] MEDS: ASPIRIN 81MG CHEW TAB PO SCH (08:34)
[2024-04-19] MEDS: TICAGrelor 90 MG TABLET PO SCH (08:35)
[2024-04-19] MEDS: carVEDIlol 6.25 MG TABLET PO SCH (08:35)
--- NOTE | 2024-04-19 08:52 | HMCIMG ---
CHEST 1VW REASON: CP COMPARISON: 09/27/2021 FINDINGS: Single view of the chest was obtained. Lungs are clear. Heart size is normal. There is no pulmonary vascular congestion. Mediastinum and bony thorax appear unremarkable. IMPRESSION: 1. Normal single view chest x-ray.
--- NOTE | 2024-04-19 09:37 | NUR ---
DR. KAUFFMAN ROUNDED ON PATIENT. UPDATED MD ON PATIENT STATUS. NO NEW ORDERS GIVEN.
--- NOTE | 2024-04-19 10:00 | EKG ---
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
--- NOTE | 2024-04-19 10:00 | EKG ---
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
--- NOTE | 2024-04-19 10:00 | EKG ---
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
[2024-04-19] MEDS ORDERED: LOSA50TA64 PO (10:18)
[2024-04-19] MEDS ORDERED: EZET-87 PO (10:18)
[2024-04-19] MEDS ORDERED: PRED20TA3 PO (10:18)
[2024-04-19] MEDS: 0.9%NACL 1000ML 1,000 ML IV SCH (11:00)
[2024-04-19] MEDS: EPTIFIBATIDE 75MG/100ML BOTTLE 100 ML IV SCH (11:04)
--- NOTE | 2024-04-19 14:06 | CONS ---
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 He presented to emergency room with complaints of chest pain. He was found to have STEMI. Left heart catheterization showed Normal coronary anatomy and severe thrombotic obstructive RCA disease. Status post successful PTCA/PCI of the distal RCA x1 (3.5 x 18 mm oleksandr [place] drug-eluting stent) He continues on IV Integrilin infusion for 16 hours post procedure We has been consulted for renal failure and nephrotic syndrome. Renal function electrolytes are stable at this time. Home medications were reviewed He was seen in the ICU, in no acute distress No family at the bedside Prognosis remains guarded REVIEW OF SYSTEMS: GENERAL: Positive for chest pain NEUROLOGIC: Negative for any blurry vision, blind spots, double vision, facial asymmetry, dysphagia, dysarthria, hemiparesis, hemisensory deficits, vertigo, ataxia. HEENT: Negative for any head trauma, neck trauma, neck stiffness, photophobia, phonophobia, sinusitis, rhinitis. CARDIAC: Negative for any chest pain, dyspnea on exertion, paroxysmal nocturnal dyspnea, peripheral edema. PULMONARY: Negative for any shortness of breath, wheezing, COPD, or TB exposure. GASTROINTESTINAL: Negative for any abdominal pain, nausea, vomiting, bright red blood per rectum, melena. GENITOURINARY: Negative for any dysuria, hematuria, incontinence. INTEGUMENTARY: Negative for any rashes, cuts, insect bites. RHEUMATOLOGIC: Negative for any joint pains, photosensitive rashes, history of vasculitis or kidney problems. HEMATOLOGIC: Negative for any abnormal bruising, frequent infections or bleeding. PAST MEDICAL HISTORY: Nephrotic syndrome Hypertension Hyperlipidemia Diabetes mellitus type 2 Obesity PAST SURGICAL HISTORY: Renal biopsy PAST SOCIAL HISTORY: Denies use of alcohol, tobacco or illicit drugs FAMILY HISTORY: Noncontributory PHYSICAL EXAM: GENERAL: Alert and oriented x 3. No acute distress. Well-nourished. EYES: EOMI. Anicteric. HENT: Moist mucous membranes. No scleral icterus. No cervical lymphadenopathy. LUNGS: Clear to auscultation bilaterally. No accessory muscle use. CARDIOVASCULAR: Regular rate and rhythm. No murmur. No JVD. ABDOMEN: Soft, non-tender and non-distended. No palpable masses. EXTREMITIES: No edema. Non-tender. SKIN: No rashes or lesions. Warm. NEUROLOGIC: No focal neurological deficits. CN II-XII grossly intact, but not individually tested. PSYCHIATRIC: Cooperative. Appropriate mood and affect. MEDICATIONS: [ ] Current Medications Medications (Trade) Dose Ordered Sig/Madeline Route PRN Reason Start Time Stop Time Status Last Admin Dose Admin Aspirin (Aspirin 81mg Chew Tab) 81 mg DAILY PO 04/19/24 09:00 05/19/24 08:59 04/19/24 08:34 81 MG Atorvastatin Calcium (LIPItor 40MG) 40 mg HS PO 04/19/24 21:00 05/19/24 20:59 Carvedilol (Coreg 6.25MG) 6.25 mg BID PO 04/19/24 09:00 05/19/24 08:59 04/19/24 08:35 6.25 MG Dextrose (D50w) 50 ml AD PRN IV HYPOGLYCEMIA PROTOCOL 04/19/24 06:00 05/19/24 05:59 Dextrose (D50w) 50 ml AD PRN IV HYPOGLYCEMIA PROTOCOL 04/19/24 13:30 05/19/24 13:29 Eptifibatide 100 ml @ 0 mls/hr AD STAT IV 04/19/24 05:59 04/19/24 06:32 DC Eptifibatide 100 ml @ 0 mls/hr PROTOCOL IV 04/19/24 11:00 05/19/24 10:59 04/19/24 11:04 12.8 MLS/HR Glucagon (Glucagon 1mg Kit) 1 mg AD PRN IM HYPOGLYCEMIA PROTOCOL 04/19/24 06:00 04/19/24 13:53 DC Glucagon (Glucagon 1mg Kit) 1 mg AD PRN IM HYPOGLYCEMIA PROTOCOL 04/19/24 13:30 05/19/24 13:29 Heparin Sodium/ Dextrose 250 ml @ 0 mls/hr PROTOCOL IV 04/19/24 03:30 04/19/24 08:14 DC 04/19/24 03:30 13.09 MLS/HR Insulin Glargine (LANtus 100 UNITS/ML 10 ML VIAL) 20 units HS SQ 04/19/24 21:00 05/19/24 20:59 Insulin Human Lispro (HumaLOG LISpro 100 UNIT/ML 3ML) INSULIN SLIDING SCAL... ACHS SQ 04/19/24 16:30 05/19/24 16:29 Prednisone (deltaSONE/ oraSONE 20MG TAB) 20 mg DAILY PO 04/20/24 09:00 05/20/24 08:59 Sodium Chloride 1,000 ml @ 150 mls/hr Q6H40M IV 04/19/24 06:00 04/19/24 09:59 DC 04/19/24 11:00 150 MLS/HR Tacrolimus (ProgRAF 1MG) 5 mg BID PO 04/19/24 21:00 05/19/24 20:59 UNV Ticagrelor (BRILinta) 90 mg BID PO 04/19/24 09:00 05/19/24 08:59 04/19/24 08:35 90 MG Vitamin B Complex/ Vit C/Folic Acid (Nephrovite Tablet) 1 cap DAILY PO 04/20/24 09:00 05/20/24 08:59 Vital Signs (last 8hr) Date Time Temp Pulse Resp B/P (MAP) Pulse Ox O2 Delivery O2 Flow Rate FiO2 04/19/24 11:00 100 21 130/81 97 Room Air 04/19/24 10:45 92 12 117/69 98 Room Air 04/19/24 10:30 98 20 115/78 97 Room Air 04/19/24 10:15 93 20 126/73 97 Room Air 04/19/24 10:00 92 12 120/74 97 Room Air 04/19/24 09:45 105 13 105/74 97 Room Air 04/19/24 09:30 102 10 104/63 97 Room Air 04/19/24 09:15 107 19 111/65 97 Room Air 04/19/24 09:00 102 17 122/78 97 Room Air 04/19/24 08:45 108 24 124/87 96 Room Air 04/19/24 08:35 122/89 04/19/24 08:30 103 13 127/80 98 Room Air 04/19/24 08:15 100 19 122/89 99 Room Air 04/19/24 08:00 97 Room Air* 0 21 04/19/24 08:00 97.5 104 20 136/96 97 Room Air 04/19/24 07:45 100 14 132/81 98 Room Air 04/19/24 07:30 103 13 127/86 98 Room Air 04/19/24 07:15 99 21 135/87 97 Room Air 04/19/24 07:00 88 13 134/89 98 Room Air 04/19/24 06:45 89 20 130/89 96 Room Air 04/19/24 06:30 85 9 120/85 99 Room Air 04/19/24 06:15 97.0 94 15 130/86 97 Room Air DIAGNOSTICS / RADIOLOGY: REASON: CP ORDERING PHYSICIAN: DARON MARSH DO PROCEDURE: CXR1VW - CHEST 1VW CHEST 1VW REASON: CP COMPARISON: 09/27/2021 FINDINGS: Single view of the chest was obtained. Lungs are clear. Heart size is normal. There is no pulmonary vascular congestion. Mediastinum and bony thorax appear unremarkable. IMPRESSION: 1. Normal single view chest x-ray. DICTATED BY: CARRILLO BRAVO MD DATE: 04/19/24 0847 LABORATORY: [ ] Hematology Labs: Test 04/19/24 03:15 Range/Units White Blood Count 22.7 H 4.8-10.8 K/uL Red Blood Count 6.27 H 4.50-6.20 MIL/uL Hemoglobin 16.4 14.0-18.0 g/dL Hematocrit 51.0 42-54 % Mean Corpuscular Volume 81.3 79-99 fL Mean Corpuscular Hemoglobin 26.2 L 27.0-33.0 pg Mean Corpuscular Hemoglobin Concent 32.2 32.0-36.0 g/dL Red Cell Distribution Width 13.7 11.0-15.5 % Platelet Count 457 H 130-400 K/uL Mean Platelet Volume 9.8 7.5-10.5 fL Immature Granulocyte % (Auto) 1.0 0-1 % Neutrophils (%) (Auto) 69.7 40.0-77.0 % Lymphocytes (%) (Auto) 21.9 21.0-51.0 % Monocytes (%) (Auto) 6.5 3.0-13.0 % Eosinophils (%) (Auto) 0.5 0.0-8.0 % Basophils (%) (Auto) 0.4 0.0-5.0 % Neutrophils # (Auto) 15.8 H 1.8-7.7 K/uL Lymphocytes # (Auto) 5.0 H 1.0-4.8 K/uL Monocytes # (Auto) 1.5 H 0.1-1.0 K/uL Eosinophils # (Auto) 0.11 0.00-0.70 K/uL Basophils # (Auto) 0.09 0.00-0.20 K/uL Absolute Immature Granulocyte (auto 0.23 0-1 K/uL Nucleated Red Blood Cells 0.0 0.0-0.19 % Chemistry Labs: Test 04/19/24 12:38 04/19/24 03:15 Range/Units Whole Blood Glucose 179 H 70-110 MG/DL Sodium Level 139 136-145 mmol/L Potassium Level 3.7 3.5-5.1 mmol/L Chloride Level 103 101-111 mmol/L Carbon Dioxide Level 33 H 21-32 mmol/L Blood Urea Nitrogen 33 H 7-18 mg/dL Creatinine 1.3 0.5-1.3 mg/dL Glomerular Filtration Rate Calc 77 >90 mL/min Random Glucose 198 H 70-105 mg/dL Total Calcium 7.7 L 8.5-10.1 mg/dL Troponin I High Sensitivity 77 *H 4-75 ng/L Coagulation Labs: Test 04/19/24 03:15 Range/Units Prothrombin Time 10.5 9.6-11.6 SEC Prothromb Time International Ratio <= 0.93 0.85-1.15 Activated Partial Thromboplast Time 24.5 L 26.3-35.5 SEC ASSESSMENT: Nephrotic syndrome on chronic steroids Inferior STEMI Immunocompromised status Type 2 diabetes Hypertension Hyperlipidemia Obesity PLAN: Labs, diagnostic, radiologic exams reviewed and interpreted by myself and supervising physician. We have reviewed external records in detail Obtain UA, urine protein and creatinine Resume home dose of tacrolimus and prednisone Start Nephro-Lydia daily Require close monitoring of renal function and electrolytes Order CBC, CMP, tacrolimus level, hemoglobin A1c, and electrolytes in am Continue with antibiotics Renal diabetic diet BiPAP as necessary, for respiratory distress IV pressors as needed Monitor blood pressure adjust medication doses as needed Avoid hypotensive episodes May use Dilaudid 0.5 mg IV every 6 hours as needed for severe pain Monitor blood sugars Strict intake, output, and daily weight should be monitored Please renally adjust medications Avoid nephrotoxic and nonsteroidal drugs Avoid contrast if possible Will continue to monitor renal function, anemia, electrolytes Treatment plan discussed with patient Questions were answered We have discussed with the other team physicians in detail about the care plan We will continue to monitor the patient closely Thank you for allowing us to participate in the care of this patient Total critical care time spent with patient, nursing staff, critical care team over 35 minutes ATTESTATION BY PHYSICIAN I have seen and examined the patient. I reviewed the documentation, medical decision making, and treatment plan as noted by the mid-level provider above. I agree with the findings and plan of care. MARCO A CADENA MD, ELIZABETH ADDRESSING MACHINE OPERATOR Apr 19, 2024 14:06
--- NOTE | 2024-04-19 14:21 | HP ---
[facility] HISTORY AND PHYSICAL Date of Service: Apr 19, 2024 Time of Service: 14:09 HISTORY OF PRESENT ILLNESS: 29-year-old male with past medical history of uncontrolled type 2 diabetes, hypertension, hyperlipidemia, nephrotic syndrome on chronic prednisone, obesity, presented to [facility] ED earlier today with complaints of anterior chest pain. Patient states pain woke him up from his sleep, and was associated with shortness of breath and diaphoresis. Patient rated pain 8/10 in severity. Due to persistence and worsening of symptoms he decided to come to the hospital for further evaluation. On arrival to ED EKG revealed significant changes in the inferior leads, ST elevations, and reciprocal ST depressions. A code STEMI was activated, ACS measures initiated. Consultation with Cardiology was obtained and patient was emergently sent to stores laborer for coronary angiogram. Patient underwent successful PTCA/PCI of the distal RCA. Patient also received double bolus and infusion of Integrilin, as well as intracoronary Integrilin. Patient tolerated procedure well, transferred to ICU for continued observation and management. Hospitalist team called on consult. REVIEW OF SYSTEMS CONSTITUTIONAL: Denies fevers, chills, or night sweats. No unintentional weight loss reported. NEUROLOGICAL: Denies headache, amaurosis fugax, motor weakness, sensory deficit, vertigo/spinning sensation, gait abnormalities, or tremors. ENT: No hearing loss, otalgia, otorrhea, rhinitis, rhinorrhea, hoarseness, or sore throat. CARDIOVASCULAR: As mentioned in HPI PULMONARY: Denies any shortness of breath, cough, phlegm/sputum, hemoptysis, pleuritic chest pain. SLEEP: Denies morning headaches, daytime somnolence or napping. Denies difficulty falling asleep, staying asleep, waking from sleep. Denies knowledge of snoring. GASTROINTESTINAL: Denies any type of dysphagia to either liquids or solids. Denies nausea, vomiting, pyrosis, early satiety, abdominal pain, diarrhea, con stipation, or changes in stool consistency or caliber. Denies coffee-ground emesis, hematemesis, hematochezia, or melanotic stools. GENITOURINARY: Denies frequency, urgency, nocturia, hematuria or incontinence (Storage/Irritative symptoms.) Low urinary stream, straining to void, urinary intermittency or hesitancy, splitting of the voiding stream, terminal dribbling. ENDOCRINOLOGIC: Denies polyuria, polydipsia, polyphagia or heat/cold intolerances. HEMATOLOGIC: Denies thrombophilia/previous clots, or coagulopathy/bleeding disorders. ONCOLOGIC: Denies personal history of malignancy. DERMATOLOGIC: Denies rashes or pruritus. PSYCHIATRIC: Denies any suicidal or homicidal ideation. Denies hallucinations. PAST MEDICAL HISTORY: As mentioned in HPI PAST SURGICAL HISTORY: Kidney biopsy PAST SOCIAL HISTORY: No tobacco no alcohol no substance abuse FAMILY HISTORY: Noncontributory Coded Allergies: rituximab (Unverified Allergy, Mild, 09/27/21) SWELLING PHYSICAL EXAM GENERAL APPEARANCE: The patient is awake, alert, and oriented, in no acute cardiopulmonary distress. NEUROLOGICAL: Cranial nerves II-XII grossly intact. Motor is 5/5 in bilateral upper and lower extremities proximal to distal. No sensory deficits. HEENT: Face is symmetric. Pupils are equal and reactive. Extraocular movements are intact. NECK: Supple. No JVD. No thyromegaly. No submental, submandibular, pre- /postauricular, occipital or supraclavicular lymphadenopathy. CHEST: Normal chest expansion. No Telemetry. LUNGS: Absence of any rales, rhonchi or any wheezing. CARDIOVASCULAR: Regular. S1 and S2 normal. No appreciable rubs, murmurs or gallops. ABDOMEN: Soft, nontender, and nondistended. There is no rebound, voluntary guarding, or rigidity. : Deferred. No Kyle. EXTREMITIES: Non-edematous and not cyanotic. No clubbing. Good capillary refill. SKIN: No skin breakdown. Vital Sign (Last 24 Hours) 04/19/24 04/19/24 08:00 11:00 Temp 97.5 Pulse 100 Resp 21 B/P (MAP) 130/81 Pulse Ox 97 O2 Delivery Room Air O2 Flow Rate 0 FiO2 21 LABS: Laboratory: Test 04/19/24 12:38 04/19/24 03:34 04/19/24 03:15 Range/Units Whole Blood Glucose 179 H 70-110 MG/DL Blood Gas Specimen Type Arterial Arterial Blood pH 7.495 H 7.350-7.450 Arterial Blood Partial Pressure CO2 30 L 35-48 mmHg Arterial Blood Partial Pressure O2 97.8 83.0-108.0 mmHg Arterial Blood HCO3 22.7 21.0-28.0 mmol/L Arterial Blood Oxygen Saturation 97.7 94.0-98.0 % Arterial Blood Base Excess 0.6 -2.0-3.0 mmol/L Hemoglobin (Blood Gas) 16.3 13.5-17.5 g/dL Sodium (Blood Gas) 134 L 136-145 MMOL/L Bedside Potassium (Blood Gas) 3.8 3.4-4.5 MMOL/L Bedside Chloride (Blood Gas) 103 98-107 MMOL/L Bedside Glucose (Blood Gas) 219 H 65-95 MG/DL Bedside Ionized Calcium (Blood Gas) 1.18 1.15-1.33 MMOL/L Bedside Lactic Acid (Blood Gas) 1.92 H 0.36-0.75 MMOL/L Blood Gas Temperature 37.0 35.5-37.0 CELSIUS Blood Gas Vent Mode ROOMAIR ROOM AIR FiO2 21.0 % Blood Gas Specimen Comment RB White Blood Count 22.7 H 4.8-10.8 K/uL Red Blood Count 6.27 H 4.50-6.20 MIL/uL Hemoglobin 16.4 14.0-18.0 g/dL Hematocrit 51.0 42-54 % Mean Corpuscular Volume 81.3 79-99 fL Mean Corpuscular Hemoglobin 26.2 L 27.0-33.0 pg Mean Corpuscular Hemoglobin Concent 32.2 32.0-36.0 g/dL Red Cell Distribution Width 13.7 11.0-15.5 % Platelet Count 457 H 130-400 K/uL Mean Platelet Volume 9.8 7.5-10.5 fL Immature Granulocyte % (Auto) 1.0 0-1 % Neutrophils (%) (Auto) 69.7 40.0-77.0 % Lymphocytes (%) (Auto) 21.9 21.0-51.0 % Monocytes (%) (Auto) 6.5 3.0-13.0 % Eosinophils (%) (Auto) 0.5 0.0-8.0 % Basophils (%) (Auto) 0.4 0.0-5.0 % Neutrophils # (Auto) 15.8 H 1.8-7.7 K/uL Lymphocytes # (Auto) 5.0 H 1.0-4.8 K/uL Monocytes # (Auto) 1.5 H 0.1-1.0 K/uL Eosinophils # (Auto) 0.11 0.00-0.70 K/uL Basophils # (Auto) 0.09 0.00-0.20 K/uL Absolute Immature Granulocyte (auto 0.23 0-1 K/uL Nucleated Red Blood Cells 0.0 0.0-0.19 % Prothrombin Time 10.5 9.6-11.6 SEC Prothromb Time International Ratio <= 0.93 0.85-1.15 Activated Partial Thromboplast Time 24.5 L 26.3-35.5 SEC Sodium Level 139 136-145 mmol/L Potassium Level 3.7 3.5-5.1 mmol/L Chloride Level 103 101-111 mmol/L Carbon Dioxide Level 33 H 21-32 mmol/L Blood Urea Nitrogen 33 H 7-18 mg/dL Creatinine 1.3 0.5-1.3 mg/dL Glomerular Filtration Rate Calc 77 >90 mL/min Random Glucose 198 H 70-105 mg/dL Total Calcium 7.7 L 8.5-10.1 mg/dL Troponin I High Sensitivity 77 *H 4-75 ng/L Current Medications Medications (Trade) Dose Ordered Sig/Madeline Route PRN Reason Start Time Stop Time Status Last Admin Dose Admin Aspirin (Aspirin 81mg Chew Tab) 81 mg DAILY PO 04/19/24 09:00 05/19/24 08:59 04/19/24 08:34 81 MG Atorvastatin Calcium (LIPItor 40MG) 40 mg HS PO 04/19/24 21:00 05/19/24 20:59 Carvedilol (Coreg 6.25MG) 6.25 mg BID PO 04/19/24 09:00 05/19/24 08:59 04/19/24 08:35 6.25 MG Dextrose (D50w) 50 ml AD PRN IV HYPOGLYCEMIA PROTOCOL 04/19/24 06:00 05/19/24 05:59 Dextrose (D50w) 50 ml AD PRN IV HYPOGLYCEMIA PROTOCOL 04/19/24 13:30 05/19/24 13:29 Eptifibatide 100 ml @ 0 mls/hr AD STAT IV 04/19/24 05:59 04/19/24 06:32 DC Eptifibatide 100 ml @ 0 mls/hr PROTOCOL IV 04/19/24 11:00 05/19/24 10:59 04/19/24 11:04 12.8 MLS/HR Glucagon (Glucagon 1mg Kit) 1 mg AD PRN IM HYPOGLYCEMIA PROTOCOL 04/19/24 06:00 04/19/24 13:53 DC Glucagon (Glucagon 1mg Kit) 1 mg AD PRN IM HYPOGLYCEMIA PROTOCOL 04/19/24 13:30 05/19/24 13:29 Heparin Sodium/ Dextrose 250 ml @ 0 mls/hr PROTOCOL IV 04/19/24 03:30 04/19/24 08:14 DC 04/19/24 03:30 13.09 MLS/HR Insulin Glargine (LANtus 100 UNITS/ML 10 ML VIAL) 20 units HS SQ 04/19/24 21:00 05/19/24 20:59 Insulin Human Lispro (HumaLOG LISpro 100 UNIT/ML 3ML) INSULIN SLIDING SCAL... ACHS SQ 04/19/24 16:30 05/19/24 16:29 Prednisone (deltaSONE/ oraSONE 20MG TAB) 20 mg DAILY PO 04/20/24 09:00 05/20/24 08:59 Sodium Chloride 1,000 ml @ 150 mls/hr Q6H40M IV 04/19/24 06:00 04/19/24 09:59 DC 04/19/24 11:00 150 MLS/HR Tacrolimus (ProgRAF 1MG) 5 mg BID PO 04/19/24 21:00 05/19/24 20:59 Ticagrelor (BRILinta) 90 mg BID PO 04/19/24 09:00 05/19/24 08:59 04/19/24 08:35 90 MG Vitamin B Complex/ Vit C/Folic Acid (Nephrovite Tablet) 1 cap DAILY PO 04/20/24 09:00 05/20/24 08:59 DIAGNOSTICS / RADIOLOGY: [ ] ASSESSMENT: Inferior STEMI POA Uncontrolled type 2 diabetes POA Essential hypertension POA Hyperlipidemia POA Nephrotic syndrome on chronic steroids POA Obesity PLAN: Continue admission to ICU under hospitalist team Patient is status post coronary angiogram and successful PTCA/PCI of the distal RCA. Cardiology remains on board, follow up with recommendations. Continue aspirin, Brilinta, Coreg, atorvastatin Initiate Lantus 20 units at bedtime, and SSI coverage. ADA diet. Glucometer checks a.c. and HS. Hypoglycemic precautions per protocol. Check A1c. Consultation with Nephrology obtained, follow up with recommendations. Continue tacrolimus, and prednisone. Avoid nephrotoxic medications, and monitor renal panel. DVT and GI prophylaxis P.r.n. medications for fever, pain, nausea, constipation Follow-up a.m. labs Further orders per hospital course ADVANCED CARE PLANNING 1. Which of the following were discussed? Hospice Care - No Therapeutic options - Yes Advance Directives - Yes Other discussions - 2. Discussed with who? The patient 3. Voluntary nature of this service was explained to the patient? Yes 4. Amount of time spent - ___ 20 minutes ____ 5. Reviewed by Physician? (if this service was performed by NPP) Yes TIANNA HARRISON Apr 19, 2024 14:21
[2024-04-19] MEDS ORDERED: ondanSETRON 4MG INJ IVP PRN (14:30)
--- NOTE | 2024-04-19 14:51 | NUR ---
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 States he commutes to school from parent's house with a walk in shower where he lives. States able to complete ADL's on his own. Denies use of medical devices. Denies home health services, home provider services or dialysis. PCP - Eddie Reich MD Pharmacy - [facility]. Upon discharge, Gonzalo Grullon, Father [phone], Annalisa Grullon Mother [phone] home and help with home care. Patient came to hospital for bad shoulder and chest pain, medication dissolved a blood clot and is now under observation. does not foresee additional needs other than medication at this time. Addendum: 04/19/24 at 1503 by EDIN MOORE RN CM Amended: Links added.
[2024-04-19 15:26] LABS: HEMOGLOBIN A1C 7.2 % (4.0-6.0)
[2024-04-19] MEDS: INSULIN LISpro 100 UNIT/ML 3ML SQ SCH (16:49)
[2024-04-19 16:53] LABS: ADD UA MICROSCOPIC YES; APPEARANCE,URINE CLEAR (CLEAR); BILIRUBIN,URINE NEGATIVE (NEGATIVE); COLOR,URINE LIGHT-YELLOW (YELLOW); GLUCOSE, URINE (UA) >=1000 mg/dL (NEGATIVE); KETONES,URINE NEGATIVE (NEGATIVE); LEUKOCYTE ESTERASE ,URINE NEGATIVE Leu/uL (NEGATIVE); NITRATE,URINE NEGATIVE (NEGATIVE); OCCULT BLOOD,URINE LARGE (NEGATIVE); PH,URINE 6.5 (5.0-8.0); PROTEIN,URINE 600 mg/dL (NEGATIVE); UROBILINOGEN,URINE 0.2 mg/dL (0.2-1.0)
[2024-04-19 16:54] LABS: MUCUS,URINE RARE LPF (None Seen); SQUAMOUS EPITHELIAL CELL,UR RARE /HPF (0-2); WBC,URINE 0-1 /HPF (0-1); YEAST,URINE BUDDING RARE /HPF (None Seen)
[2024-04-19 16:57] LABS: AMPHET/METH SCREEN,URINE NEGATIVE (NEGATIVE); BARBITURATE SCREEN, URINE NEGATIVE (NEGATIVE); BENZODIAZEPINES SCREEN,URINE POSITIVE (NEGATIVE); CANNABINOID SCREEN,URINE NEGATIVE (NEGATIVE); COCAINE SCREEN,URINE NEGATIVE (NEGATIVE); CREATININE,URINE RANDOM 130.42 mg/dL (30-135); OPIATE SCREEN,URINE NEGATIVE (NEGATIVE); PHENCYCLIDINE SCREEN,URINE NEGATIVE (NEGATIVE)
[2024-04-19 17:22] LABS: PROTEIN,URINE RANDOM 1508.8 mg/dL (0-11.9)
[2024-04-19] MEDS: LoSARTan 50 MG TABLET PO ONE (17:48)
--- NOTE | 2024-04-19 18:45 | HMCSR ---
APPROVED REPORT EXAM: Two-dimensional and M-mode echocardiogram with Doppler and color Doppler. INDICATION ICD: ST-elevation AR RCA I21.11 2D Dimensions RVDd3.2 cmLVEF(%)37.6 (>50%)LVED Vol(simp.)51.5 mL IVSd1.5 (0.7-1.1cm)FS(%)18 %LA ESV INDEX (4CH)10.90 mL/m2 LVDd3.4 (3.8-5.6cm)LA (2D)2.3 (1.6-4.0cm)LA ESV INDEX (2CH)13.70 mL/m2 PWd1.3 (0.7-1.1cm)Ao Root(2D)2.5 (2.0-3.7cm)LA ESV INDEX (BP)11.90 mL/m2 IVSs1.9 cmLVOT diam2.1 (1.8-2.4cm) LVDs2.8 (2.5-4.0cm) PWs1.7 cm M-Mode Dimensions EPSS0.3 cm LA (MM)2.0 (1.6-4.0cm) Ao Root(MM)2.9 (2.0-3.7cm) Aortic Valve AoV VTI0.2 mAo Mean GR1.0 mmHgLVOT VTI0.10 m Mitral Valve MV E Vmax50.6 cm/sDECEL Vdlg222 ms MV A Vmax53.3 cm/sP 1/2 T43 ms E/A ratio0.9MVA (PHT)5.2 cm2 TDI E/E' Rmscyc77.0E/E' Lateral9.7 Medial E' Peak V4.60 cm/sLateral E' Peak V5.20 cm/s Left Ventricle Left ventricular cavity size is normal. There is normal LV segmental wall motion. Moderate to severe concentric left ventricular hypertrophy. LVEF is55-60%. The left ventricular diastolic function is no rmal. Right Ventricle The right ventricle is normal size. Right ventricular systolic function is mildly reduced. Atria The left atrium is small. The right atrium size is normal. Aortic Valve The aortic valve is normal in structure and function. No aortic regurgitation is present. There is no aortic valvular stenosis. Mitral Valve The mitral valve is normal in structure and function. There is no mitral valve regurgitation noted. T here is no mitral valve stenosis. Tricuspid Valve The tricuspid valve is normal in structure and function. There is no tricuspid valve regurgitation no dudley. Pulmonic Valve The pulmonary valve is normal in structure and function. There is no pulmonic valvular regurgitation. Great Vessels The aortic root is normal in size. The IVC is normal in size and collapses >50% with inspiration. Pericardium No pericardial effusion. Conclusion LVEF is55-60%. Moderate to severe concentric left ventricular hypertrophy.
[2024-04-19] MEDS: FAMOTIDINE 20MG VIAL IV SCH (20:08)
[2024-04-19] MEDS: tacrOLIMUS 1 MG CAPSULE PO SCH (20:09)
[2024-04-19] MEDS: atorVAStatin 40 MG TABLET PO SCH (20:09)
[2024-04-19] MEDS: INSULIN GLARgine 100 UNITS/ML 10 ML VIAL SQ SCH (20:20)
[2024-04-20] VITALS (27 sets, daily range): BP systolic 109–136; BP diastolic 52–74; PULSE 87–114; RESP 4–24; TEMP 98–99.3; O2SAT 96–98
[2024-04-20] MEDS: acetaMINOPHEN 500 MG TABLET PO PRN (02:25)
[2024-04-20 04:49] LABS: BASOPHILS # (AUTO) 0.06 K/uL (0.00-0.20); BASOPHILS % (AUTO) 0.3 % (0.0-5.0); EOSINOPHILS # (AUTO) 0.07 K/uL (0.00-0.70); EOSINOPHILS % (AUTO) 0.4 % (0.0-8.0); HEMATOCRIT 46.8 % (42-54); IMMATURE GRANULOCYTE ABSOLUTE 0.14 K/uL (0-1); MEAN CORPUSCULAR HGB CONC 32.9 g/dL (32.0-36.0); MEAN CORPUSCULAR VOLUME 79.1 fL (79-99); MONOCYTES # (AUTO) 2.1 K/uL (0.1-1.0); MONOCYTES % (AUTO) 10.6 % (3.0-13.0); NEUTROPHILS # (AUTO) 14.3 K/uL (1.8-7.7); PLATELET COUNT (AUTO) 374 K/uL (130-400); RED BLOOD CELL COUNT(AUTO) 5.92 MIL/uL (4.50-6.20); WHITE BLOOD COUNT (AUTO) 19.6 K/uL (4.8-10.8)
[2024-04-20 05:05] LABS: HEMOGLOBIN A1C 7.4 % (4.0-6.0)
[2024-04-20 05:19] LABS: ALBUMIN 0.7 g/dL (3.5-5.0); BILIRUBIN,TOTAL 0.3 mg/dL (0.2-1.0); CREATININE 1.4 mg/dL (0.5-1.3); MAGNESIUM 1.5 mg/dL (1.80-2.40); TOTAL PROTEIN, SERUM 4.4 g/dL (6.0-8.3)
[2024-04-20] MEDS: predniSONE 20 MG TABLET PO SCH (08:17)
[2024-04-20] MEDS: Vitamin B Complex/Vit C/Folic Acid PO SCH (08:18)
[2024-04-20] MEDS: carVEDIlol 12.5 MG TABLET PO SCH (08:18)
[2024-04-20] MEDS: LoSARTan 50 MG TABLET PO SCH (08:21)
--- NOTE | 2024-04-20 08:44 | PN ---
[facility] CARDIOLOGY PROGRESS NOTE Date Patient Seen: Apr 20, 2024 Time of Visit: 08:33 Interval History: [No acute events overnight , the patient underwent 2Dechocardiogram revealed LVEF is55-60%. Moderate to severe concentric left ventricular hypertrophy. He denies any chest pain , palpitations, dyspnea or any other anginal equivalents , he has a stable kidney function. His blood pressure is better controlled , currently at 113/58 mmhg ] Physical Examination: GENERAL: [No acute distress.] HEAD: [Normal with no signs of head trauma.] He has peridental edema due to Nephrotic syndrome. EYES: [PERRLA, EOMI, conjunctiva and sclera normal.] ENT: [Hearing grossly intact, normal oropharynx.] NECK: [Supple without JVD. There is no tenderness, lymphadenopathy, or masses. No thyromegaly. Normal carotid upstrokes without bruits.] LUNGS: [Clear breath sounds bilaterally.. No wheezes, or rhonchi.] HEART: [Normal rate and rhythm. Normal S1 and S2 without mumurs, gallop or rub.] VASC: [Peripheral pulses +2 bilaterally.] ABD: [Bowel sounds normal, soft, nontender, no masses, no organomegaly. No audible bruits.] : [Not examined] LYMPH: [No lymphadenopathy noted.] EXT: [No clubbing, cyanosis or edema.] SKIN: [No rashes or lesions noted.] NEURO: [Awake, alert, and oriented x3. No focal sensory or strength deficits noted.] Laboratory: [ ] Hematology Labs: Test 04/20/24 04:30 Range/Units White Blood Count 19.6 H 4.8-10.8 K/uL Red Blood Count 5.92 4.50-6.20 MIL/uL Hemoglobin 15.4 14.0-18.0 g/dL Hematocrit 46.8 42-54 % Mean Corpuscular Volume 79.1 79-99 fL Mean Corpuscular Hemoglobin 26.0 L 27.0-33.0 pg Mean Corpuscular Hemoglobin Concent 32.9 32.0-36.0 g/dL Red Cell Distribution Width 14.0 11.0-15.5 % Platelet Count 374 130-400 K/uL Mean Platelet Volume 9.7 7.5-10.5 fL Immature Granulocyte % (Auto) 0.7 0-1 % Neutrophils (%) (Auto) 73.0 40.0-77.0 % Lymphocytes (%) (Auto) 15.0 L 21.0-51.0 % Monocytes (%) (Auto) 10.6 3.0-13.0 % Eosinophils (%) (Auto) 0.4 0.0-8.0 % Basophils (%) (Auto) 0.3 0.0-5.0 % Neutrophils # (Auto) 14.3 H 1.8-7.7 K/uL Lymphocytes # (Auto) 3.0 1.0-4.8 K/uL Monocytes # (Auto) 2.1 H 0.1-1.0 K/uL Eosinophils # (Auto) 0.07 0.00-0.70 K/uL Basophils # (Auto) 0.06 0.00-0.20 K/uL Absolute Immature Granulocyte (auto 0.14 0-1 K/uL Nucleated Red Blood Cells 0.0 0.0-0.19 % Chemistry Labs: Test 04/20/24 05:51 04/20/24 04:30 04/19/24 03:15 Range/Units Whole Blood Glucose 184 H 70-110 MG/DL Sodium Level 136 136-145 mmol/L Potassium Level 4.0 3.5-5.1 mmol/L Chloride Level 104 101-111 mmol/L Carbon Dioxide Level 26 21-32 mmol/L Blood Urea Nitrogen 32 H 7-18 mg/dL Creatinine 1.4 H 0.5-1.3 mg/dL Glomerular Filtration Rate Calc 70 >90 mL/min Random Glucose 197 H 70-105 mg/dL Hemoglobin A1c 7.4 H 4.0-6.0 % Estimated Average Glucose (eAG) 166 H 70-126 mg/dL Total Calcium 7.6 L 8.5-10.1 mg/dL Phosphorus Level 5.0 H 2.5-4.9 mg/dL Magnesium Level 1.50 L 1.80-2.40 mg/dL Total Bilirubin 0.3 0.2-1.0 mg/dL Aspartate Amino Transf (AST/SGOT) 226 H 10-37 U/L Alanine Aminotransferase (ALT/SGPT) 43 12-78 U/L Alkaline Phosphatase 43 L 50-136 U/L Total Protein 4.4 L 6.0-8.3 g/dL Albumin 0.7 L 3.5-5.0 g/dL Troponin I High Sensitivity 77 *H 4-75 ng/L Coagulation Labs: Test 04/19/24 03:15 Range/Units Prothrombin Time 10.5 9.6-11.6 SEC Prothromb Time International Ratio <= 0.93 0.85-1.15 Activated Partial Thromboplast Time 24.5 L 26.3-35.5 SEC Diagnostics / Radiology: [Copy/Paste Echos/Imaging Report here] Impression and Plan: Assessment: [Inferior STEMI Nephrotic syndrome on chronic steroids Type 2 diabetes Hypertension Hyperlipidemia Obesity ] Plan: #Inferior STEMI: Patient presenting to [facility] due to severe 8/10 anterior chest pressure accompanied with diaphoresis awakened him from sleep Presenting ECG revealed significant inferior ST elevations with reciprocal ST depressions which was a new change compared to prior ECGs Code STEMI was activated he was initiated on ACS protocol (IV bolus and infusion of heparin, 180 mg of ticagrelor, 324 mg of aspirin) Patient was taken to the cardiac cath technologist emergently as found to have a critical 90-95% distal thrombotic lesion within the RCA and 100% distal thrombotic occlusion of the PLB Patient underwent successful PTCA/PCI of the distal RCA x1 (3.5 x 18 mm oleksandr Andrews drug-eluting stent). We are unable to perform aspiration thrombectomy of his distal PLV due to severe tortuosity and lack of guide catheter support Patient was provided with double bolus of IV Integrilin and infusion during the procedure. Moreover, he received intracoronary Integrilin bolus infusion via distal microcatheter injection The patient currently denies any cardiac symptoms or anginal equivalents. He has completed IV Integrilin for a total of 16 hours , and his access site shows no evidence of bleeding 2Dechocardiogram revealed LVEF is55-60%. Moderate to severe concentric left ventricular hypertrophy. Current HR in the low 100s , we will increase Carvedilol to 12.5 mg ervery 12 hours Patient will require 12 months adapt (aspirin 81 mg q.day/ticagrelor 90 mg b.i.d.) in addition to Lipitor 40 mg q.h.s. Please keep patient on telemetry. Monitor/replace electrolytes as needed We had a long discussion with Hematology Dr Gimenez , due to his Nephrotic syndrome he is hypercoagulable and high risk for a repeat thrombotic event, he will possibly require life long DAPT We will consult Nephrology for his Nephrotic syndrome. #HTN: Systolic blood pressures [id number] Continue losartan 25 mg q.day in addition to Coreg 12.5 mg b.i.d. Thank you for this consult. Cardiology continued to follow along pending optimization of antihypertensives Albert briones MD ATTESTATION BY PHYSICIAN I have seen and examined the patient, reviewed the above documentation, participated in medical decision making, made necessary modifications, and agree with the treatment plan as documented by my mid-level provider above. MD MAURICE Wheatley JAMES R MD Apr 20, 2024 08:44
--- NOTE | 2024-04-20 11:48 | PN ---
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 He presented to emergency room with complaints of chest pain. He was found to have STEMI. Left heart catheterization showed Normal coronary anatomy and severe thrombotic obstructive RCA disease. Status post successful PTCA/PCI of the distal RCA x1 (3.5 x 18 mm oleksandr [place] drug-eluting stent) We have been consulted for renal failure and nephrotic syndrome. Renal function and electrolytes are stable at this time. Continues to be followed by cardiology Hematology workout is ongoing He has been resumed on immunosuppression medications Home medications were reviewed He was seen in the ICU, in no acute distress No family at the bedside Prognosis remains guarded REVIEW OF SYSTEMS: GENERAL: Positive for chest pain NEUROLOGIC: Negative for any blurry vision, blind spots, double vision, facial asymmetry, dysphagia, dysarthria, hemiparesis, hemisensory deficits, vertigo, ataxia. HEENT: Negative for any head trauma, neck trauma, neck stiffness, photophobia, phonophobia, sinusitis, rhinitis. CARDIAC: Negative for any chest pain, dyspnea on exertion, paroxysmal nocturnal dyspnea, peripheral edema. PULMONARY: Negative for any shortness of breath, wheezing, COPD, or TB exposure. GASTROINTESTINAL: Negative for any abdominal pain, nausea, vomiting, bright red blood per rectum, melena. GENITOURINARY: Negative for any dysuria, hematuria, incontinence. INTEGUMENTARY: Negative for any rashes, cuts, insect bites. RHEUMATOLOGIC: Negative for any joint pains, photosensitive rashes, history of vasculitis or kidney problems. HEMATOLOGIC: Negative for any abnormal bruising, frequent infections or bleeding. PHYSICAL EXAM: GENERAL: Alert and oriented x 3. No acute distress. Well-nourished. EYES: EOMI. Anicteric. HENT: Moist mucous membranes. No scleral icterus. No cervical lymphadenopathy. LUNGS: Clear to auscultation bilaterally. No accessory muscle use. CARDIOVASCULAR: Regular rate and rhythm. No murmur. No JVD. ABDOMEN: Soft, non-tender and non-distended. No palpable masses. EXTREMITIES: No edema. Non-tender. SKIN: No rashes or lesions. Warm. NEUROLOGIC: No focal neurological deficits. CN II-XII grossly intact, but not individually tested. PSYCHIATRIC: Cooperative. Appropriate mood and affect. LABORATORY: [ ] Hematology Labs: Test 04/20/24 04:30 Range/Units White Blood Count 19.6 H 4.8-10.8 K/uL Red Blood Count 5.92 4.50-6.20 MIL/uL Hemoglobin 15.4 14.0-18.0 g/dL Hematocrit 46.8 42-54 % Mean Corpuscular Volume 79.1 79-99 fL Mean Corpuscular Hemoglobin 26.0 L 27.0-33.0 pg Mean Corpuscular Hemoglobin Concent 32.9 32.0-36.0 g/dL Red Cell Distribution Width 14.0 11.0-15.5 % Platelet Count 374 130-400 K/uL Mean Platelet Volume 9.7 7.5-10.5 fL Immature Granulocyte % (Auto) 0.7 0-1 % Neutrophils (%) (Auto) 73.0 40.0-77.0 % Lymphocytes (%) (Auto) 15.0 L 21.0-51.0 % Monocytes (%) (Auto) 10.6 3.0-13.0 % Eosinophils (%) (Auto) 0.4 0.0-8.0 % Basophils (%) (Auto) 0.3 0.0-5.0 % Neutrophils # (Auto) 14.3 H 1.8-7.7 K/uL Lymphocytes # (Auto) 3.0 1.0-4.8 K/uL Monocytes # (Auto) 2.1 H 0.1-1.0 K/uL Eosinophils # (Auto) 0.07 0.00-0.70 K/uL Basophils # (Auto) 0.06 0.00-0.20 K/uL Absolute Immature Granulocyte (auto 0.14 0-1 K/uL Nucleated Red Blood Cells 0.0 0.0-0.19 % Chemistry Labs: Test 04/20/24 11:06 04/20/24 04:30 04/19/24 03:15 Range/Units Whole Blood Glucose 177 H 70-110 MG/DL Sodium Level 136 136-145 mmol/L Potassium Level 4.0 3.5-5.1 mmol/L Chloride Level 104 101-111 mmol/L Carbon Dioxide Level 26 21-32 mmol/L Blood Urea Nitrogen 32 H 7-18 mg/dL Creatinine 1.4 H 0.5-1.3 mg/dL Glomerular Filtration Rate Calc 70 >90 mL/min Random Glucose 197 H 70-105 mg/dL Hemoglobin A1c 7.4 H 4.0-6.0 % Estimated Average Glucose (eAG) 166 H 70-126 mg/dL Total Calcium 7.6 L 8.5-10.1 mg/dL Phosphorus Level 5.0 H 2.5-4.9 mg/dL Magnesium Level 1.50 L 1.80-2.40 mg/dL Total Bilirubin 0.3 0.2-1.0 mg/dL Aspartate Amino Transf (AST/SGOT) 226 H 10-37 U/L Alanine Aminotransferase (ALT/SGPT) 43 12-78 U/L Alkaline Phosphatase 43 L 50-136 U/L Total Protein 4.4 L 6.0-8.3 g/dL Albumin 0.7 L 3.5-5.0 g/dL Troponin I High Sensitivity 77 *H 4-75 ng/L Coagulation Labs: Test 04/19/24 03:15 Range/Units Prothrombin Time 10.5 9.6-11.6 SEC Prothromb Time International Ratio <= 0.93 0.85-1.15 Activated Partial Thromboplast Time 24.5 L 26.3-35.5 SEC DIAGNOSTICS / RADIOLOGY: REASON: stemi ORDERING PHYSICIAN: KAYLA RICHARDS MD PROCEDURE: ECHO [facility] - ECHO 2-D COMPLETE APPROVED REPORT EXAM: Two-dimensional and M-mode echocardiogram with Doppler and color Doppler. INDICATION ICD: ST-elevation [place] RCA I21.11 2D Dimensions RVDd 3.2 cm LVEF(%) 37.6 (>50%) LVED Vol(simp.) 51.5 mL IVSd 1.5 (0.7-1.1cm) FS(%) 18 % LA ESV INDEX (4CH) 10.90 mL/m2 LVDd 3.4 (3.8-5.6cm) LA (2D) 2.3 (1.6-4.0cm) LA ESV INDEX (2CH) 13.70 mL/m2 PWd 1.3 (0.7-1.1cm) Ao Root(2D) 2.5 (2.0-3.7cm) LA ESV INDEX (BP) 11.90 mL/m2 IVSs 1.9 cm LVOT diam 2.1 (1.8-2.4cm) LVDs 2.8 (2.5-4.0cm) PWs 1.7 cm M-Mode Dimensions EPSS 0.3 cm LA (MM) 2.0 (1.6-4.0cm) Ao Root(MM) 2.9 (2.0-3.7cm) Aortic Valve AoV VTI 0.2 m Ao Mean GR 1.0 mmHg LVOT VTI 0.10 m Mitral Valve MV E Vmax 50.6 cm/s DECEL Time 139 ms MV A Vmax 53.3 cm/s P 1/2 T 43 ms E/A ratio 0.9 MVA (PHT) 5.2 cm2 TDI E/E' Medial 11.0 E/E' Lateral 9.7 Medial E' Peak V 4.60 cm/s Lateral E' Peak V 5.20 cm/s Left Ventricle Left ventricular cavity size is normal. There is normal LV segmental wall motion. Moderate to severe concentric left ventricular hypertrophy. LVEF is55- 60%. The left ventricular diastolic function is normal. Right Ventricle The right ventricle is normal size. Right ventricular systolic function is mildly reduced. Atria The left atrium is small. The right atrium size is normal. Aortic Valve The aortic valve is normal in structure and function. No aortic regurgitation is present. There is no aortic valvular stenosis. Mitral Valve The mitral valve is normal in structure and function. There is no mitral valve regurgitation noted. There is no mitral valve stenosis. Tricuspid Valve The tricuspid valve is normal in structure and function. There is no tricuspid valve regurgitation noted. Pulmonic Valve The pulmonary valve is normal in structure and function. There is no pulmonic valvular regurgitation. Great Vessels The aortic root is normal in size. The IVC is normal in size and collapses >50% with inspiration. Pericardium No pericardial effusion. Conclusion LVEF is55-60%. Moderate to severe concentric left ventricular hypertrophy. DICTATED BY: PHILIPPE PENN MD DATE: 04/19/24 0919 REASON: CP ORDERING PHYSICIAN: DARON MARSH DO PROCEDURE: CXR1VW - CHEST 1VW CHEST 1VW REASON: CP COMPARISON: 09/27/2021 FINDINGS: Single view of the chest was obtained. Lungs are clear. Heart size is normal. There is no pulmonary vascular congestion. Mediastinum and bony thorax appear unremarkable. IMPRESSION: 1. Normal single view chest x-ray. DICTATED BY: CARRILLO BRAVO MD DATE: 04/19/24 0847 ASSESSMENT: Nephrotic syndrome on chronic steroids Inferior STEMI Immunocompromised status Type 2 diabetes Hypertension Hyperlipidemia Obesity PLAN: Labs, diagnostic, radiologic exams reviewed and interpreted by myself and supervising physician. We have reviewed external records in detail Pending tacrolimus level. Pending further hematology recommendations Require close monitoring of renal function and electrolytes Order CBC, CMP, and electrolytes in am Continue with antibiotics Renal diabetic diet BiPAP as necessary, for respiratory distress IV pressors as needed Monitor blood pressure adjust medication doses as needed Avoid hypotensive episodes May use Dilaudid 0.5 mg IV every 6 hours as needed for severe pain Monitor blood sugars Strict intake, output, and daily weight should be monitored Please renally adjust medications Avoid nephrotoxic and nonsteroidal drugs Avoid contrast if possible Will continue to monitor renal function, anemia, electrolytes Treatment plan discussed with patient Questions were answered We have discussed with the other team physicians in detail about the care plan We will continue to monitor the patient closely Total critical care time spent with patient, nursing staff, critical care team over 35 minutes ATTESTATION BY PHYSICIAN I have seen and examined the patient. I reviewed the documentation, medical decision making, and treatment plan as noted by the mid-level provider above. I agree with the findings and plan of care. MARCO A CADENA MD, [facility] Apr 20, 2024 11:48
[2024-04-20] MEDS: MAGNESIUM 2GM PREMIX 50ML 50 ML IV ONE (12:15)
--- NOTE | 2024-04-20 15:17 | CONS ---
CONSULT NOTE: 29-year-old male who presents for chest pain beginning about 90 minutes prior to arrival (began around 2:00 a.m. on 04/19/2024). Patient reports left-sided chest pressure radiates to the left shoulder. Moderate to severe. It has been constant for the last hour and a half or so. He denies any shortness of breath, dizziness, vomiting, diarrhea, sore throat or URI type symptoms. He denies any drug abuse. He has never had cardiac disease before. Medical history: Nephrotic syndrome (possibly autoimmune), diabetes, hypertension, high cholesterol Allergies: Coded Allergies: rituximab (Unverified Allergy, Mild, 09/27/21) SWELLING Home Meds Active Scripts Metronidazole (Metronidazole) 500 Mg Tablet, 500 MG PO TID for 10 Days, #30 TAB Prov:KATHLEEN GILL Sr., MD 08/03/22 Ondansetron (Ondansetron Odt) 4 Mg Tab.rapdis, 4 MG PO Q6HPRN PRN for nausea, #16 TAB 0 Refills Prov:KATHLEEN GILL Sr., MD 08/03/22 Acetaminophen with Codeine (Acetaminophen-Cod #3 Tablet) 1 Each Tablet, 1 TAB PO Q6H PRN for PAIN LEVEL 7 TO 10, #15 TAB Prov:DELGADO CARTER MD 10/05/21 Rivaroxaban (Xarelto) 1 Each Tab.ds.pk, 1 EACH PO AD, #1 KIT Prov:DELGADO CARTER MD 10/05/21 Pantoprazole Sodium (Protonix) 40 Mg Ectab, 40 MG PO DAILY for 90 Days, #90 TAB.EC Prov:MORENO DAILEY Jr., MD 10/01/21 Prednisone (Prednisone) 20 Mg Tablet, 60 MG PO DAILY for 30 Days, #90 TAB Prov:MORENO DAILEY Jr., MD 10/01/21 Atorvastatin Calcium (LIPITOR) 40 Mg Tablet, 40 MG PO HS for 90 Days, #90 TAB Prov:MORENO DAILEY Jr., MD 10/01/21 Reported Medications Metformin HCl (Metformin HCl) 500 Mg Tablet, 500 MG PO BID, TAB 09/27/21 Tacrolimus (Tacrolimus) 5 Mg Capsule, 5 MG PO BID, CAP 09/27/21 Insulin Aspart (Novolog) 100 Unit/1 Ml Cartridge, 10 UNITS SQ TIDMEALS, CARTRIDGE 09/27/21 Torsemide (Torsemide) 100 Mg Tablet, 100 MG PO DAILY, TAB 09/27/21 Sulfamethoxazole/Trimethoprim (Sulfamethoxazole-Tmp Ss Tablet) 1 Each Tablet, 1 EACH PO BID, TAB 09/27/21 Insulin Glargine,Hum.rec.anlog (Basaglar Kwikpen U-100) 100 Unit/1 Ml Insuln.pen, 50 UNIT SQ DAILY, SYRINGE 09/27/21 Past History Past Medical History Past Medical History: Diabetes-Type II, High Cholesterol, Hypertension, Other Medical History Other: NEPHROTIC SYNDROME Past Surgical History: None Surgical History Other: KIDNEY BIOPSY Social History Social History: Negative, Lives with family Review of Systems ROS Dictation CONSTITUTIONAL: No chills, no fever, no weakness, no diaphoresis, no malaise. HEAD/FACE: No signs of trauma. EENT: No eye pain, no blurred vision, no tearing, no double vision, no ear pain, no ear discharge, no nose pain, no nasal congestion, no throat pain, no throat swelling, no mouth pain. RESPIRATORY: No cough, no orthopnea, no SOB, no stridor, no wheezing. CARDIOVASCULAR: Chest pain GASTROINTESTINAL/ABDOMINAL: No abdominal pain, no constipation, no diarrhea, no nausea, no vomiting. GENITOURINARY: No abnormal discharge, no dysuria, no frequent urination, no hematuria. No complaints of pain in the genitals. MUSCULOSKELETAL: No back pain, no gout, no joint pain, no joint swelling, no muscle pain, no muscle stiffness, no neck pain. INTEGUMENTARY: No change in color, no change in hair/nails, no dryness, no lesion, no lumps, no rash. NEUROLOGICAL/PSYCH: No anxiety, not depressed, no emotional problem, no head ache, no numbness, no pre-existing deficit, no history of seizures, no tremors, no weakness. HEMATOLOGIC/LYMPHATIC: Not anemic, no history of blood clots, no apparent bleeding, no bruising, glands not swollen. All Systems Negative, Except as Noted. Physical Exam Physical Exam Physical Exam Dictation VITAL SIGNS: Reviewed. GENERAL APPEARANCE: Alert, oriented x3, moderate distress due to pain HEAD AND FACE: Non-traumatic. EYES: PERRL, pink conjunctivas, eyelid no trauma, anterior chamber clear. EARS: Pinnas intact and no signs of trauma or erythema. Ear canals clear and no discharge. TMs no erythema. NOSE: No discharge, no bleeding. OROPHARYNX: Mouth normal, teeth no caries, tongue pink. Pharynx clear, no erythema. Tonsils no exudates, no abscesses noted. Mucous membrane moist. NECK: Supple, non-tender, no thyromegaly, no masses, no JVD, no bruits. BREAST: Deferred. CHEST: No tenderness, no crepitus, no paradoxical movement, no retractions. LUNGS: Clear, well-ventilated, symmetric, no rales, no wheezing, no rhonchi, no stridor, good breath sounds bilaterally. HEART: Regular rate, regular rhythm, no murmur, no gallops. VASCULAR: No peripheral edema. ABDOMEN: Soft, positive bowel sounds, nondistended, no guarding, nontender, no rebound, no masses no hepatomegaly, no splenomegaly, no Wilson's sign, no hernias. RECTAL: Deferred. GENITAL: Deferred. NEUROLOGICAL: Normal speech, gross motor function intact, gross sensory function intact. MUSCULOSKELETAL: Neck nontender, full range of motion, back nontender, full range of motion. EXTREMITIES: Nontender, full range of motion. SKIN: Color pink, dry, no turgor, no rash, no lacerations, no abrasions, no contusions. LYMPHATICS: Deferred. Assessment 1. History of nephrotic syndrome for a long time 2. Diabetes mellitus 3. Hypertension 4. Coronary artery disease status post stenting with the patient to have STEMI. Plan 1. This patient could have a hypercoagulable state which put him at risk of coronary artery disease at a young age. 2. Because of his nephrotic syndrome this patient could have protein C protein S or Antithrombin III Deficiency. We will ask for that. 3. Peripheral blood smear showed red blood cells to be normocytic normochromic. There was no fragment cell or schistocyte. There is no teardrop cell. There is no rouleaux phenomena. There is no pelger-Huet cell. White blood cell with no blasts. Platelet was normal in morphology and count. 4. There was hypersegmented neutrophils. This patient to be started on folic acid 1 mg p.o. daily and vitamin B12 1000 mcg p.o. daily. 5. No need for anticoagulation at this time. If this patient is stable he could be discharged and follow-up with me. If this patient was found to have hypercoagulable state then maybe he will need anticoagulation at that time. I discussed the case with cardiology.LAB RESULTS 04/20/24 11:06: Whole Blood Glucose 177H 04/20/24 04:30: White Blood Count 19.6H, Red Blood Count 5.92, Hemoglobin 15.4, Hematocrit 46.8, Mean Corpuscular Volume 79.1, Mean Corpuscular Hemoglobin 26.0L, Mean Corpuscular Hemoglobin Concent 32.9, Red Cell Distribution Width 14.0, Platelet Count 374, Mean Platelet Volume 9.7, Immature Granulocyte % (Auto) 0.7, Neutrophils (%) (Auto) 73.0, Lymphocytes (%) (Auto) 15.0L, Monocytes (%) (Auto) 10.6, Eosinophils (%) (Auto) 0.4, Basophils (%) (Auto) 0.3, Neutrophils # (Auto) 14.3H, Lymphocytes # (Auto) 3.0, Monocytes # (Auto) 2.1H, Eosinophils # (Auto) 0.07, Basophils # (Auto) 0.06, Absolute Immature Granulocyte (auto 0.14, Nucleated Red Blood Cells 0.0, Sodium Level 136, Potassium Level 4.0, Chloride Level 104, Carbon Dioxide Level 26, Blood Urea Nitrogen 32H, Creatinine 1.4H, Glomerular Filtration Rate Calc 70, Random Glucose 197H, Hemoglobin A1c 7.4H, Estimated Average Glucose (eAG) 166H, Total Calcium 7.6L, Phosphorus Level 5.0H, Magnesium Level 1.50L, Total Bilirubin 0.3, Aspartate Amino Transf (AST/SGOT) 226H, Alanine Aminotransferase (ALT/SGPT) 43, Alkaline Phosphatase 43L, Total Protein 4.4L, Albumin 0.7L 04/19/24 16:40: Urine Color LIGHT-YELLOW, Urine Appearance CLEAR, Urine pH 6.5, Urine Specific [place] OVER, Urine Protein 600H, Urine Glucose (UA) >=1000H, Urine Ketones NEGATIVE, Urine Occult Blood LARGEH, Urine Nitrate NEGATIVE, Urine Bilirubin NEGATIVE, Urine Urobilinogen 0.2, Urine Leukocyte Esterase NEGATIVE, Urine RBC 6-10H, Urine WBC 0-1, Urine Squamous Epithelial Cells RARE, Urine Bacteria None, Urine Yeast RARE, Urine Random Creatinine 130.42, Urine Random Total Protein 1508.8H, Urine Opiates Screen NEGATIVE, Urine Barbiturates Screen NEGATIVE, Urine Phencyclidine Screen NEGATIVE, Urine Amphetamines Screen NEGATIVE, Urine Benzodiazepines Screen POSITIVEH, Urine Cocaine Screen NEGATIVE, Urine Marijuana (THC) Screen NEGATIVE 04/19/24 03:34: Blood Gas Specimen Type Arterial, Arterial Blood pH 7.495H, Arterial Blood Partial Pressure CO2 30L, Arterial Blood Partial Pressure O2 97.8, Arterial Blood HCO3 22.7, Arterial Blood Oxygen Saturation 97.7, Arterial Blood Base Excess 0.6, Hemoglobin (Blood Gas) 16.3, Sodium (Blood Gas) 134L, Bedside Potassium (Blood Gas) 3.8, Bedside Chloride (Blood Gas) 103, Bedside Glucose (Blood Gas) 219H, Bedside Ionized Calcium (Blood Gas) 1.18, Bedside Lactic Acid (Blood Gas) 1.92H, Blood Gas Temperature 37.0, Blood Gas Vent Mode ROOMAIR, FiO2 21.0, Blood Gas Specimen Comment RB 04/19/24 03:15: Prothrombin Time 10.5, Prothromb Time International Ratio <= 0.93, Activated Partial Thromboplast Time 24.5L, Troponin I High Sensitivity 77*H Laboratory Tests Test 04/19/24 16:18 04/19/24 16:40 04/20/24 04:30 04/20/24 05:51 Whole Blood Glucose 189 MG/DL (70-110) H 184 MG/DL (70-110) H Urine Color LIGHT-YELLOW (YELLOW) Urine Appearance CLEAR (CLEAR) Urine pH 6.5 (5.0-8.0) Urine Specific [place] OVER (1.001-1.031) Urine Protein 600 mg/dL (NEGATIVE) H Urine Glucose (UA) >=1000 mg/dL (NEGATIVE) H Urine Ketones NEGATIVE mg/dL (NEGATIVE) Urine Occult Blood LARGE (NEGATIVE) H Urine Nitrate NEGATIVE (NEGATIVE) Urine Bilirubin NEGATIVE mg/dL (NEGATIVE) Urine Urobilinogen 0.2 mg/dL (0.2-1.0) Urine Leukocyte Esterase NEGATIVE Seb/uL Urine RBC 6-10 /HPF (0-1) H Urine WBC 0-1 /HPF (0-1) Urine Squamous Epithelial Cells RARE /HPF (0-2) Urine Bacteria None /HPF (None Seen) Urine Yeast RARE /HPF (None Seen) Urine Random Creatinine 130.42 mg/dL (30-135) Urine Random Total Protein 1508.8 mg/dL (0-11.9) H Urine Opiates Screen NEGATIVE (NEGATIVE) Urine Barbiturates Screen NEGATIVE (NEGATIVE) Urine Phencyclidine Screen NEGATIVE (NEGATIVE) Urine Amphetamines Screen NEGATIVE (NEGATIVE) Urine Benzodiazepines Screen POSITIVE (NEGATIVE) H Urine Cocaine Screen NEGATIVE (NEGATIVE) Urine Marijuana (THC) Screen NEGATIVE (NEGATIVE) White Blood Count 19.6 K/uL (4.8-10.8) H Red Blood Count 5.92 MIL/uL (4.50-6.20) Hemoglobin 15.4 g/dL (14.0-18.0) Hematocrit 46.8 % (42-54) Mean Corpuscular Volume 79.1 fL (79-99) Mean Corpuscular Hemoglobin 26.0 pg (27.0-33.0) L Mean Corpuscular Hemoglobin Concent 32.9 g/dL (32.0-36.0) Red Cell Distribution Width 14.0 % (11.0-15.5) Platelet Count 374 K/uL (130-400) Mean Platelet Volume 9.7 fL (7.5-10.5) Immature Granulocyte % (Auto) 0.7 % (0-1) Neutrophils (%) (Auto) 73.0 % (40.0-77.0) Lymphocytes (%) (Auto) 15.0 % (21.0-51.0) L Monocytes (%) (Auto) 10.6 % (3.0-13.0) Eosinophils (%) (Auto) 0.4 % (0.0-8.0) Basophils (%) (Auto) 0.3 % (0.0-5.0) Neutrophils # (Auto) 14.3 K/uL (1.8-7.7) H Lymphocytes # (Auto) 3.0 K/uL (1.0-4.8) Monocytes # (Auto) 2.1 K/uL (0.1-1.0) H Eosinophils # (Auto) 0.07 K/uL (0.00-0.70) Basophils # (Auto) 0.06 K/uL (0.00-0.20) Absolute Immature Granulocyte (auto 0.14 K/uL (0-1) Nucleated Red Blood Cells 0.0 % (0.0-0.19) Sodium Level 136 mmol/L (136-145) Potassium Level 4.0 mmol/L (3.5-5.1) Chloride Level 104 mmol/L (101-111) Carbon Dioxide Level 26 mmol/L (21-32) Blood Urea Nitrogen 32 mg/dL (7-18) H Creatinine 1.4 mg/dL (0.5-1.3) H Glomerular Filtration Rate Calc 70 mL/min (>90) Random Glucose 197 mg/dL (70-105) H Hemoglobin A1c 7.4 % (4.0-6.0) H Estimated Average Glucose (eAG) 166 mg/dL (70-126) H Total Calcium 7.6 mg/dL (8.5-10.1) L Phosphorus Level 5.0 mg/dL (2.5-4.9) H Magnesium Level 1.50 mg/dL (1.80-2.40) L Total Bilirubin 0.3 mg/dL (0.2-1.0) Aspartate Amino Transf (AST/SGOT) 226 U/L (10-37) H Alanine Aminotransferase (ALT/SGPT) 43 U/L (12-78) Alkaline Phosphatase 43 U/L (50-136) L Total Protein 4.4 g/dL (6.0-8.3) L Albumin 0.7 g/dL (3.5-5.0) L Test 04/20/24 11:06 Whole Blood Glucose 177 MG/DL (70-110) H JULIO SARABIA MD Apr 20, 2024 15:17
--- NOTE | 2024-04-20 15:32 | PN ---
[facility] PROGRESS NOTE Date of Service: Apr 20, 2024 Time of Service: 15:17 SUBJECTIVE: 04/20 patient seen at bedside, no acute events overnight. He is status post stent placement by Cardiology. Hematology has been consulted to help manage repeat thrombotic events, workup still pending, we will follow up. Nephrology consulted to assist with nephrotic syndrome. Echocardiogram showing normal EF 55-60%. He has been afebrile, hemodynamically stable, saturating well on room air, AST elevated at 226, remainder of his labs are relatively unremarkable. REVIEW OF SYSTEMS CONSTITUTIONAL: Denies fevers, chills, or night sweats. No unintentional weight loss reported. NEUROLOGICAL: Denies headache, amaurosis fugax, motor weakness, sensory deficit, vertigo/spinning sensation, gait abnormalities, or tremors. ENT: No hearing loss, otalgia, otorrhea, rhinitis, rhinorrhea, hoarseness, or sore throat. CARDIOVASCULAR: As mentioned in HPI PULMONARY: Denies any shortness of breath, cough, phlegm/sputum, hemoptysis, pleuritic chest pain. SLEEP: Denies morning headaches, daytime somnolence or napping. Denies difficulty falling asleep, staying asleep, waking from sleep. Denies knowledge of snoring. GASTROINTESTINAL: Denies any type of dysphagia to either liquids or solids. Denies nausea, vomiting, pyrosis, early satiety, abdominal pain, diarrhea, constipation, or changes in stool consistency or caliber. Denies coffee-ground emesis, hematemesis, hematochezia, or melanotic stools. GENITOURINARY: Denies frequency, urgency, nocturia, hematuria or incontinence (Storage/Irritative symptoms.) Low urinary stream, straining to void, urinary intermittency or hesitancy, splitting of the voiding stream, terminal dribbling. ENDOCRINOLOGIC: Denies polyuria, polydipsia, polyphagia or heat/cold intolerances. HEMATOLOGIC: Denies thrombophilia/previous clots, or coagulopathy/bleeding disorders. ONCOLOGIC: Denies personal history of malignancy. DERMATOLOGIC: Denies rashes or pruritus. PSYCHIATRIC: Denies any suicidal or homicidal ideation. Denies hallucinations. PHYSICAL EXAM GENERAL APPEARANCE: The patient is awake, alert, and oriented, in no acute cardiopulmonary distress. NEUROLOGICAL: Cranial nerves II-XII grossly intact. Motor is 5/5 in bilateral upper and lower extremities proximal to distal. No sensory deficits. HEENT: Face is symmetric. Pupils are equal and reactive. Extraocular movements are intact. NECK: Supple. No JVD. No thyromegaly. No submental, submandibular, pre- /postauricular, occipital or supraclavicular lymphadenopathy. CHEST: Normal chest expansion. No Telemetry. LUNGS: Absence of any rales, rhonchi or any wheezing. CARDIOVASCULAR: Regular. S1 and S2 normal. No appreciable rubs, murmurs or gallops. ABDOMEN: Soft, nontender, and nondistended. There is no rebound, voluntary guarding, or rigidity. : Deferred. No Kyle. EXTREMITIES: Non-edematous and not cyanotic. No clubbing. Good capillary refill. SKIN: No skin breakdown. Vital Signs (last 8hr) Date Time Temp Pulse Resp B/P (MAP) Pulse Ox O2 Delivery O2 Flow Rate FiO2 04/20/24 12:00 99.0 90 19 112/58 97 Room Air 04/20/24 09:00 99 18 121/68 96 Room Air 04/20/24 08:18 114/62 04/20/24 08:00 96 Room Air* 0 21 04/20/24 08:00 98 Room Air* 0 21 04/20/24 08:00 99.1 114 18 114/74 97 Room Air LABS: Laboratory: Test 04/20/24 11:06 04/20/24 04:30 04/19/24 16:40 04/19/24 03:34 Range/Units Whole Blood Glucose 177 H 70-110 MG/DL White Blood Count 19.6 H 4.8-10.8 K/uL Red Blood Count 5.92 4.50-6.20 MIL/uL Hemoglobin 15.4 14.0-18.0 g/dL Hematocrit 46.8 42-54 % Mean Corpuscular Volume 79.1 79-99 fL Mean Corpuscular Hemoglobin 26.0 L 27.0-33.0 pg Mean Corpuscular Hemoglobin Concent 32.9 32.0-36.0 g/dL Red Cell Distribution Width 14.0 11.0-15.5 % Platelet Count 374 130-400 K/uL Mean Platelet Volume 9.7 7.5-10.5 fL Immature Granulocyte % (Auto) 0.7 0-1 % Neutrophils (%) (Auto) 73.0 40.0-77.0 % Lymphocytes (%) (Auto) 15.0 L 21.0-51.0 % Monocytes (%) (Auto) 10.6 3.0-13.0 % Eosinophils (%) (Auto) 0.4 0.0-8.0 % Basophils (%) (Auto) 0.3 0.0-5.0 % Neutrophils # (Auto) 14.3 H 1.8-7.7 K/uL Lymphocytes # (Auto) 3.0 1.0-4.8 K/uL Monocytes # (Auto) 2.1 H 0.1-1.0 K/uL Eosinophils # (Auto) 0.07 0.00-0.70 K/uL Basophils # (Auto) 0.06 0.00-0.20 K/uL Absolute Immature Granulocyte (auto 0.14 0-1 K/uL Nucleated Red Blood Cells 0.0 0.0-0.19 % Sodium Level 136 136-145 mmol/L Potassium Level 4.0 3.5-5.1 mmol/L Chloride Level 104 101-111 mmol/L Carbon Dioxide Level 26 21-32 mmol/L Blood Urea Nitrogen 32 H 7-18 mg/dL Creatinine 1.4 H 0.5-1.3 mg/dL Glomerular Filtration Rate Calc 70 >90 mL/min Random Glucose 197 H 70-105 mg/dL Hemoglobin A1c 7.4 H 4.0-6.0 % Estimated Average Glucose (eAG) 166 H 70-126 mg/dL Total Calcium 7.6 L 8.5-10.1 mg/dL Phosphorus Level 5.0 H 2.5-4.9 mg/dL Magnesium Level 1.50 L 1.80-2.40 mg/dL Total Bilirubin 0.3 0.2-1.0 mg/dL Aspartate Amino Transf (AST/SGOT) 226 H 10-37 U/L Alanine Aminotransferase (ALT/SGPT) 43 12-78 U/L Alkaline Phosphatase 43 L 50-136 U/L Total Protein 4.4 L 6.0-8.3 g/dL Albumin 0.7 L 3.5-5.0 g/dL Urine Color LIGHT-YELLOW YELLOW Urine Appearance CLEAR CLEAR Urine pH 6.5 5.0-8.0 Urine Specific [place] OVER 1.001-1.031 Urine Protein 600 H NEGATIVE mg/dL Urine Glucose (UA) >=1000 H NEGATIVE mg/dL Urine Ketones NEGATIVE NEGATIVE mg/dL Urine Occult Blood LARGE H NEGATIVE Urine Nitrate NEGATIVE NEGATIVE Urine Bilirubin NEGATIVE NEGATIVE mg/dL Urine Urobilinogen 0.2 0.2-1.0 mg/dL Urine Leukocyte Esterase NEGATIVE NEGATIVE Seb/uL Urine RBC 6-10 H 0-1 /HPF Urine WBC 0-1 0-1 /HPF Urine Squamous Epithelial Cells RARE 0-2 /HPF Urine Bacteria None None Seen /HPF Urine Yeast RARE None Seen /HPF Urine Random Creatinine 130.42 30-135 mg/dL Urine Random Total Protein 1508.8 H 0-11.9 mg/dL Urine Opiates Screen NEGATIVE NEGATIVE Urine Barbiturates Screen NEGATIVE NEGATIVE Urine Phencyclidine Screen NEGATIVE NEGATIVE Urine Amphetamines Screen NEGATIVE NEGATIVE Urine Benzodiazepines Screen POSITIVE H NEGATIVE Urine Cocaine Screen NEGATIVE NEGATIVE Urine Marijuana (THC) Screen NEGATIVE NEGATIVE Blood Gas Specimen Type Arterial Arterial Blood pH 7.495 H 7.350-7.450 Arterial Blood Partial Pressure CO2 30 L 35-48 mmHg Arterial Blood Partial Pressure O2 97.8 83.0-108.0 mmHg Arterial Blood HCO3 22.7 21.0-28.0 mmol/L Arterial Blood Oxygen Saturation 97.7 94.0-98.0 % Arterial Blood Base Excess 0.6 -2.0-3.0 mmol/L Hemoglobin (Blood Gas) 16.3 13.5-17.5 g/dL Sodium (Blood Gas) 134 L 136-145 MMOL/L Bedside Potassium (Blood Gas) 3.8 3.4-4.5 MMOL/L Bedside Chloride (Blood Gas) 103 98-107 MMOL/L Bedside Glucose (Blood Gas) 219 H 65-95 MG/DL Bedside Ionized Calcium (Blood Gas) 1.18 1.15-1.33 MMOL/L Bedside Lactic Acid (Blood Gas) 1.92 H 0.36-0.75 MMOL/L Blood Gas Temperature 37.0 35.5-37.0 CELSIUS Blood Gas Vent Mode ROOMAIR ROOM AIR FiO2 21.0 % Blood Gas Specimen Comment RB Test 04/19/24 03:15 Range/Units Prothrombin Time 10.5 9.6-11.6 SEC Prothromb Time International Ratio <= 0.93 0.85-1.15 Activated Partial Thromboplast Time 24.5 L 26.3-35.5 SEC Troponin I High Sensitivity 77 *H 4-75 ng/L Current Medications Medications (Trade) Dose Ordered Sig/Madeline Route PRN Reason Start Time Stop Time Status Last Admin Dose Admin Acetaminophen (TYLenol 500MG TAB) 500 mg Q6H PRN PO MILD PAIN (1-3) 04/19/24 14:30 05/19/24 14:29 04/20/24 09:44 500 MG Aspirin (Aspirin 81mg Chew Tab) 81 mg DAILY PO 04/19/24 09:00 05/19/24 08:59 04/20/24 08:18 81 MG Atorvastatin Calcium (LIPItor 40MG) 40 mg HS PO 04/19/24 21:00 05/19/24 20:59 04/19/24 20:09 40 MG Carvedilol (Coreg 12.5MG) 12.5 mg BID PO 04/20/24 09:00 05/20/24 08:59 04/20/24 08:18 12.5 MG Carvedilol (Coreg 6.25MG) 6.25 mg BID PO 04/19/24 09:00 04/20/24 08:08 DC 04/19/24 20:09 6.25 MG Dextrose (D50w) 50 ml AD PRN IV HYPOGLYCEMIA PROTOCOL 04/19/24 06:00 04/19/24 14:23 DC Dextrose (D50w) 50 ml AD PRN IV HYPOGLYCEMIA PROTOCOL 04/19/24 13:30 05/19/24 13:29 Eptifibatide 100 ml @ 0 mls/hr AD STAT IV 04/19/24 05:59 04/19/24 06:32 DC Eptifibatide 100 ml @ 0 mls/hr PROTOCOL IV 04/19/24 11:00 05/19/24 10:59 04/19/24 17:48 12.8 MLS/HR Famotidine (Pepcid 20mg Vial) 20 mg BID IV 04/19/24 21:00 05/19/24 20:59 04/20/24 08:18 20 MG Glucagon (Glucagon 1mg Kit) 1 mg AD PRN IM HYPOGLYCEMIA PROTOCOL 04/19/24 06:00 04/19/24 13:53 DC Glucagon (Glucagon 1mg Kit) 1 mg AD PRN IM HYPOGLYCEMIA PROTOCOL 04/19/24 13:30 05/19/24 13:29 Heparin Sodium/ Dextrose 250 ml @ 0 mls/hr PROTOCOL IV 04/19/24 03:30 04/19/24 08:14 DC 04/19/24 03:30 13.09 MLS/HR Insulin Glargine (LANtus 100 UNITS/ML 10 ML VIAL) 20 units HS SQ 04/19/24 21:00 05/19/24 20:59 04/19/24 20:20 20 UNITS Insulin Human Lispro (HumaLOG LISpro 100 UNIT/ML 3ML) INSULIN SLIDING SCAL... ACHS SQ 04/19/24 16:30 05/19/24 16:29 04/20/24 11:22 2 UNIT Losartan Potassium (CozAAR 50 mg TAB) 50 mg DAILY PO 04/20/24 09:00 05/20/24 08:59 04/20/24 08:21 50 MG Ondansetron HCl (zoFRAN 4MG INJ) 4 mg Q12H PRN IVP NAUSEA/VOMITING 04/19/24 14:30 05/19/24 14:29 Prednisone (deltaSONE/ oraSONE 20MG TAB) 20 mg DAILY PO 04/20/24 09:00 05/20/24 08:59 04/20/24 08:17 20 MG Sodium Chloride 1,000 ml @ 150 mls/hr Q6H40M IV 04/19/24 06:00 04/19/24 09:59 DC 04/19/24 11:00 150 MLS/HR Tacrolimus (ProgRAF 1MG) 5 mg BID PO 04/19/24 21:00 05/19/24 20:59 04/20/24 08:21 5 MG Ticagrelor (BRILinta) 90 mg BID PO 04/19/24 09:00 05/19/24 08:59 04/20/24 08:17 90 MG Vitamin B Complex (Vitamin B-12) 1,000 mcg DAILY PO 04/21/24 09:00 05/21/24 08:59 Vitamin B Complex/ Vit C/Folic Acid (Nephrovite Tablet) 1 cap DAILY PO 04/20/24 09:00 05/20/24 08:59 04/20/24 08:18 1 CAP DIAGNOSTICS / RADIOLOGY: [ ] ASSESSMENT: Inferior STEMI POA Uncontrolled type 2 diabetes POA Essential hypertension POA Hyperlipidemia POA Nephrotic syndrome on chronic steroids POA Obesity PLAN: Continue admission to ICU Patient is status post coronary angiogram and successful PTCA/PCI of the distal RCA. Cardiology remains on board, follow up with recommendations. Continue aspirin, Brilinta, Coreg, atorvastatin Initiate Lantus 20 units at bedtime, and SSI coverage. ADA diet. Glucometer checks a.c. and HS. Hypoglycemic precautions per protocol. Consultation with Nephrology obtained, follow up with recommendations. Continue tacrolimus, and prednisone. Avoid nephrotoxic medications, and monitor renal panel. Hematology consulted, appreciate recommendations Antithorombin, protein C, Protein S, antithrombin ordered will follow up DVT and GI prophylaxis P.r.n. medications for fever, pain, nausea, constipation Follow-up a.m. labs Further orders per hospital course Disposition: Pending hematology recommendations, nephrology recommendations, post procedure recovery JACOBY PARRA MD Apr 20, 2024 15:32
[2024-04-21] VITALS (9 sets, daily range): BP systolic 109–133; BP diastolic 53–60; PULSE 80–97; RESP 8–25; TEMP 98.2–99.3; O2SAT 98–100
[2024-04-21 04:20] LABS: BASOPHILS # (AUTO) 0.04 K/uL (0.00-0.20); BASOPHILS % (AUTO) 0.2 % (0.0-5.0); EOSINOPHILS # (AUTO) 0.06 K/uL (0.00-0.70); EOSINOPHILS % (AUTO) 0.3 % (0.0-8.0); HEMATOCRIT 45.3 % (42-54); IMMATURE GRANULOCYTE ABSOLUTE 0.14 K/uL (0-1); LYMPHOCYTES # (AUTO) 3.1 K/uL (1.0-4.8); MEAN CORPUSCULAR HEMOGLOBIN 26.3 pg (27.0-33.0); MEAN CORPUSCULAR HGB CONC 32.5 g/dL (32.0-36.0); MEAN CORPUSCULAR VOLUME 80.9 fL (79-99); MONOCYTES # (AUTO) 2.1 K/uL (0.1-1.0); MONOCYTES % (AUTO) 10.1 % (3.0-13.0); NEUTROPHILS % (AUTO) 73.7 % (40.0-77.0); PLATELET COUNT (AUTO) 353 K/uL (130-400); RED CELL DISTRIBUTION WIDTH 14.1 % (11.0-15.5); WHITE BLOOD COUNT (AUTO) 20.3 K/uL (4.8-10.8)
[2024-04-21 04:45] LABS: CREATININE 1.6 mg/dL (0.5-1.3); PHOSPHORUS 5.3 mg/dL (2.5-4.9)
[2024-04-21] MEDS: CYANOCOBALAMIN (VITAMIN B-12) 1,000 MCG TABLET PO SCH (08:36)
--- NOTE | 2024-04-21 10:45 | PN ---
This is a 29-year-old male with a history of nephrotic syndrome on chronic prednisone, hypertension, hyperlipidemia and type 2 diabetes mellitus. He was admitted 04/19/2024 secondary to an inferior wall STEMI. He was found to have 90-95% thrombotic lesion to the distal RCA and 100% thrombotic occlusion to the distal posterolateral branch status post PTCA/PCI to the distal RCA x1 and field aspiration thrombectomy of the distal posterolateral branch. He was started on Integrilin times 16 hours. He is on dual antiplatelet therapy with [id number] mg once daily and ticagrelor 90 mg twice daily. He was seen by Hematology in his undergoing workup for hypercoagulable state. Echocardiogram 04/19/2024 demonstrates an ejection fraction of 55-60% with moderate to severe LVH, without significant valvular abnormalities noted. He is currently in sinus tachycardia with heart rates in the 90s to 100s. Carvedilol was titrated from 6.25-12.5 twice daily due to sinus tachycardia. His most recent blood pressure is 118/60. He reports chest pain with deep breaths this morning. He states that the chest pain is different from the pain that he presented with which was localized to the left chest and left arm. He states that the chest pain is improved with sitting upright. He denies palpitations, shortness or breath or dizziness. On exam, he is in no acute distress, regular rhythm, tachycardic, lungs are clear to auscultation bilaterally, no lower extremity edema is noted. No hematoma to the right groin site. Assessment: 1. Inferior wall STEMI status post PTCA/PCI to the distal RCA x1 and failed aspiration thrombectomy of the distal posterolateral branch. 2. Preserved LVEF with moderate to severe LVH. 3. Nephrotic syndrome on chronic prednisone. 4. Type 2 diabetes mellitus. 5. Hypertension. 6. Hyperlipidemia. Plan: 1. He presented with an inferior wall STEMI 04/19/2024 and underwent intervention to the distal RCA. He was placed on Integrilin times 16 hours. He is currently on dual antiplatelet therapy with [id number] mg once daily, ticagrelor 90 mg twice daily, as well as atorvastatin 40 mg once daily, losartan 50 mg once daily and carvedilol 12.5 mg twice daily. 2. He remains sinus tachycardia with heart rates in the 90s to 100s. We will discontinue carvedilol and transition to metoprolol tartrate 50 mg twice daily for better rate control. 3. He has been seen by Hematology and his undergoing hypercoagulable workup. He may require anticoagulation once this is complete. 4. We will reassess tomorrow. Anticipate discharge home tomorrow. Vitals/Labs Vital Signs Date Time Temp Pulse Resp B/P (MAP) Pulse Ox O2 Delivery O2 Flow Rate FiO2 04/21/24 08:30 118/60 04/21/24 08:00 98.8 84 12 98 Room Air 04/21/24 07:50 0 21 Laboratory Tests 04/21/24 04:00 SCARLETT MÉNDEZ Apr 21, 2024 10:45
--- NOTE | 2024-04-21 13:19 | PN ---
[facility] PROGRESS NOTE Date of Service: Apr 21, 2024 Time of Service: 13:05 SUBJECTIVE: 04/20 patient seen at bedside, no acute events overnight. He is status post stent placement by Cardiology. Hematology has been consulted to help manage repeat thrombotic events, workup still pending, we will follow up. Nephrology consulted to assist with nephrotic syndrome. Echocardiogram showing normal EF 55-60%. He has been afebrile, hemodynamically stable, saturating well on room air, AST elevated at 226, remainder of his labs are relatively unremarkable. 04/21 Pt seen at bedside, no acute events overnight. Cardiology discontinuing carvedilol and switching to metoprolol. Will continue to observe for another 24 hours, possible dc tomorrow. Creatinine increased from 1.4 up to 1.6, WBC increased from 19.6 up to 20.3, pt continues on prednisone, remainder of his labs are relatively unremarkable. Further recommendations per nephrology REVIEW OF SYSTEMS 12 point ROS negative unless noted in HPI PHYSICAL EXAM GENERAL APPEARANCE: The patient is awake, alert, and oriented, in no acute cardiopulmonary distress. NEUROLOGICAL: Cranial nerves II-XII grossly intact. Motor is 5/5 in bilateral upper and lower extremities proximal to distal. No sensory deficits. HEENT: Face is symmetric. Pupils are equal and reactive. Extraocular movements are intact. NECK: Supple. No JVD. No thyromegaly. No submental, submandibular, pre- /postauricular, occipital or supraclavicular lymphadenopathy. CHEST: Normal chest expansion. No Telemetry. LUNGS: Absence of any rales, rhonchi or any wheezing. CARDIOVASCULAR: Regular. S1 and S2 normal. No appreciable rubs, murmurs or gallops. ABDOMEN: Soft, nontender, and nondistended. There is no rebound, voluntary guarding, or rigidity. : Deferred. No Kyle. EXTREMITIES: Non-edematous and not cyanotic. No clubbing. Good capillary ref ill. SKIN: No skin breakdown. Vital Signs (last 8hr) Date Time Temp Pulse Resp B/P (MAP) Pulse Ox O2 Delivery O2 Flow Rate FiO2 04/21/24 12:00 98.2 92 20 121/56 100 Room Air 04/21/24 08:30 118/60 04/21/24 08:00 98.8 84 12 118/60 98 Room Air 04/21/24 07:50 98 Room Air* 0 21 LABS: Laboratory: Test 04/21/24 11:14 04/21/24 04:00 04/20/24 04:30 04/19/24 16:40 Range/Units Whole Blood Glucose 201 H 70-110 MG/DL White Blood Count 20.3 H 4.8-10.8 K/uL Red Blood Count 5.60 4.50-6.20 MIL/uL Hemoglobin 14.7 14.0-18.0 g/dL Hematocrit 45.3 42-54 % Mean Corpuscular Volume 80.9 79-99 fL Mean Corpuscular Hemoglobin 26.3 L 27.0-33.0 pg Mean Corpuscular Hemoglobin Concent 32.5 32.0-36.0 g/dL Red Cell Distribution Width 14.1 11.0-15.5 % Platelet Count 353 130-400 K/uL Mean Platelet Volume 9.5 7.5-10.5 fL Immature Granulocyte % (Auto) 0.7 0-1 % Neutrophils (%) (Auto) 73.7 40.0-77.0 % Lymphocytes (%) (Auto) 15.0 L 21.0-51.0 % Monocytes (%) (Auto) 10.1 3.0-13.0 % Eosinophils (%) (Auto) 0.3 0.0-8.0 % Basophils (%) (Auto) 0.2 0.0-5.0 % Neutrophils # (Auto) 15.0 H 1.8-7.7 K/uL Lymphocytes # (Auto) 3.1 1.0-4.8 K/uL Monocytes # (Auto) 2.1 H 0.1-1.0 K/uL Eosinophils # (Auto) 0.06 0.00-0.70 K/uL Basophils # (Auto) 0.04 0.00-0.20 K/uL Absolute Immature Granulocyte (auto 0.14 0-1 K/uL Nucleated Red Blood Cells 0.0 0.0-0.19 % Sodium Level 138 136-145 mmol/L Potassium Level 4.0 3.5-5.1 mmol/L Chloride Level 104 101-111 mmol/L Carbon Dioxide Level 31 21-32 mmol/L Blood Urea Nitrogen 42 H 7-18 mg/dL Creatinine 1.6 H 0.5-1.3 mg/dL Glomerular Filtration Rate Calc 60 >90 mL/min Random Glucose 94 # 70-105 mg/dL Total Calcium 8.0 L 8.5-10.1 mg/dL Phosphorus Level 5.3 H 2.5-4.9 mg/dL Magnesium Level 2.00 1.80-2.40 mg/dL Hemoglobin A1c 7.4 H 4.0-6.0 % Estimated Average Glucose (eAG) 166 H 70-126 mg/dL Total Bilirubin 0.3 0.2-1.0 mg/dL Aspartate Amino Transf (AST/SGOT) 226 H 10-37 U/L Alanine Aminotransferase (ALT/SGPT) 43 12-78 U/L Alkaline Phosphatase 43 L 50-136 U/L Total Protein 4.4 L 6.0-8.3 g/dL Albumin 0.7 L 3.5-5.0 g/dL Urine Color LIGHT-YELLOW YELLOW Urine Appearance CLEAR CLEAR Urine pH 6.5 5.0-8.0 Urine Specific [place] OVER 1.001-1.031 Urine Protein 600 H NEGATIVE mg/dL Urine Glucose (UA) >=1000 H NEGATIVE mg/dL Urine Ketones NEGATIVE NEGATIVE mg/dL Urine Occult Blood LARGE H NEGATIVE Urine Nitrate NEGATIVE NEGATIVE Urine Bilirubin NEGATIVE NEGATIVE mg/dL Urine Urobilinogen 0.2 0.2-1.0 mg/dL Urine Leukocyte Esterase NEGATIVE NEGATIVE Seb/uL Urine RBC 6-10 H 0-1 /HPF Urine WBC 0-1 0-1 /HPF Urine Squamous Epithelial Cells RARE 0-2 /HPF Urine Bacteria None None Seen /HPF Urine Yeast RARE None Seen /HPF Urine Random Creatinine 130.42 30-135 mg/dL Urine Random Total Protein 1508.8 H 0-11.9 mg/dL Urine Opiates Screen NEGATIVE NEGATIVE Urine Barbiturates Screen NEGATIVE NEGATIVE Urine Phencyclidine Screen NEGATIVE NEGATIVE Urine Amphetamines Screen NEGATIVE NEGATIVE Urine Benzodiazepines Screen POSITIVE H NEGATIVE Urine Cocaine Screen NEGATIVE NEGATIVE Urine Marijuana (THC) Screen NEGATIVE NEGATIVE Current Medications Medications (Trade) Dose Ordered Sig/Madeline Route PRN Reason Start Time Stop Time Status Last Admin Dose Admin Acetaminophen (TYLenol 500MG TAB) 500 mg Q6H PRN PO MILD PAIN (1-3) 04/19/24 14:30 05/19/24 14:29 04/21/24 09:19 500 MG Aspirin (Aspirin 81mg Chew Tab) 81 mg DAILY PO 04/19/24 09:00 05/19/24 08:59 04/21/24 08:31 81 MG Atorvastatin Calcium (LIPItor 40MG) 40 mg HS PO 04/19/24 21:00 05/19/24 20:59 04/20/24 21:20 40 MG Carvedilol (Coreg 12.5MG) 12.5 mg BID PO 04/20/24 09:00 04/21/24 10:35 DC 04/21/24 08:30 12.5 MG Carvedilol (Coreg 6.25MG) 6.25 mg BID PO 04/19/24 09:00 04/20/24 08:08 DC 04/19/24 20:09 6.25 MG Dextrose (D50w) 50 ml AD PRN IV HYPOGLYCEMIA PROTOCOL 04/19/24 06:00 04/19/24 14:23 DC Dextrose (D50w) 50 ml AD PRN IV HYPOGLYCEMIA PROTOCOL 04/19/24 13:30 05/19/24 13:29 Eptifibatide 100 ml @ 0 mls/hr AD STAT IV 04/19/24 05:59 04/19/24 06:32 DC Eptifibatide 100 ml @ 0 mls/hr PROTOCOL IV 04/19/24 11:00 05/19/24 10:59 04/19/24 17:48 12.8 MLS/HR Famotidine (Pepcid 20mg Vial) 20 mg BID IV 04/19/24 21:00 05/19/24 20:59 04/21/24 08:31 20 MG Glucagon (Glucagon 1mg Kit) 1 mg AD PRN IM HYPOGLYCEMIA PROTOCOL 04/19/24 06:00 04/19/24 13:53 DC Glucagon (Glucagon 1mg Kit) 1 mg AD PRN IM HYPOGLYCEMIA PROTOCOL 04/19/24 13:30 05/19/24 13:29 Heparin Sodium/ Dextrose 250 ml @ 0 mls/hr PROTOCOL IV 04/19/24 03:30 04/19/24 08:14 DC 04/19/24 03:30 13.09 MLS/HR Insulin Glargine (LANtus 100 UNITS/ML 10 ML VIAL) 20 units HS SQ 04/19/24 21:00 05/19/24 20:59 04/20/24 20:33 20 UNITS Insulin Human Lispro (HumaLOG LISpro 100 UNIT/ML 3ML) INSULIN SLIDING SCAL... ACHS SQ 04/19/24 16:30 05/19/24 16:29 04/21/24 11:32 3 UNIT Losartan Potassium (CozAAR 50 mg TAB) 50 mg DAILY PO 04/20/24 09:00 05/20/24 08:59 04/21/24 08:31 50 MG Metoprolol Tartrate (loprESSOR) 50 mg BID PO 04/21/24 21:00 05/21/24 20:59 Ondansetron HCl (zoFRAN 4MG INJ) 4 mg Q12H PRN IVP NAUSEA/VOMITING 04/19/24 14:30 05/19/24 14:29 Prednisone (deltaSONE/ oraSONE 20MG TAB) 20 mg DAILY PO 04/20/24 09:00 05/20/24 08:59 04/21/24 08:31 20 MG Sodium Chloride 1,000 ml @ 150 mls/hr Q6H40M IV 04/19/24 06:00 04/19/24 09:59 DC 04/19/24 11:00 150 MLS/HR Tacrolimus (ProgRAF 1MG) 5 mg BID PO 04/19/24 21:00 05/19/24 20:59 04/21/24 08:31 5 MG Ticagrelor (BRILinta) 90 mg BID PO 04/19/24 09:00 05/19/24 08:59 04/21/24 08:30 90 MG Vitamin B Complex (Vitamin B-12) 1,000 mcg DAILY PO 04/21/24 09:00 05/21/24 08:59 04/21/24 08:36 1,000 MCG Vitamin B Complex/ Vit C/Folic Acid (Nephrovite Tablet) 1 cap DAILY PO 04/20/24 09:00 05/20/24 08:59 04/21/24 08:31 1 CAP DIAGNOSTICS / RADIOLOGY: [ ] ASSESSMENT: Inferior STEMI POA Uncontrolled type 2 diabetes POA Essential hypertension POA Hyperlipidemia POA Nephrotic syndrome on chronic steroids POA Obesity PLAN: Continue admission to ICU Patient is status post coronary angiogram and successful PTCA/PCI of the distal RCA. Cardiology remains on board, follow up with recommendations. Continue aspirin, Brilinta, Coreg, atorvastatin Initiate Lantus 20 units at bedtime, and SSI coverage. ADA diet. Glucometer checks a.c. and HS. Hypoglycemic precautions per protocol. Consultation with Nephrology obtained, follow up with recommendations. Continue tacrolimus, and prednisone. Avoid nephrotoxic medications, and monitor renal panel. Hematology consulted, appreciate recommendations Antithorombin, protein C, Protein S, antithrombin ordered will follow up DVT and GI prophylaxis P.r.n. medications for fever, pain, nausea, constipation Follow-up a.m. labs Further orders per hospital course Disposition: Pending hematology recommendations, nephrology recommendations, post procedure recovery JACOBY PARRA MD Apr 21, 2024 13:19
--- NOTE | 2024-04-21 15:31 | PN ---
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 He presented to emergency room with complaints of chest pain. He was found to have STEMI. Left heart catheterization showed Normal coronary anatomy and severe thrombotic obstructive RCA disease. Status post successful PTCA/PCI of the distal RCA x1 (3.5 x 18 mm oleksandr Emanuel drug-eluting stent) We have been consulted for renal failure and nephrotic syndrome. Renal function and electrolytes are stable at this time. Continues to be followed by cardiology Hematology workup is ongoing He has been resumed on immunosuppression medications Home medications were reviewed He was seen in the ICU, in no acute distress No family at the bedside Prognosis remains guarded REVIEW OF SYSTEMS: GENERAL: Positive for chest pain NEUROLOGIC: Negative for any blurry vision, blind spots, double vision, facial asymmetry, dysphagia, dysarthria, hemiparesis, hemisensory deficits, vertigo, ataxia. HEENT: Negative for any head trauma, neck trauma, neck stiffness, photophobia, phonophobia, sinusitis, rhinitis. CARDIAC: Negative for any chest pain, dyspnea on exertion, paroxysmal nocturnal dyspnea, peripheral edema. PULMONARY: Negative for any shortness of breath, wheezing, COPD, or TB exposure. GASTROINTESTINAL: Negative for any abdominal pain, nausea, vomiting, bright red blood per rectum, melena. GENITOURINARY: Negative for any dysuria, hematuria, incontinence. INTEGUMENTARY: Negative for any rashes, cuts, insect bites. RHEUMATOLOGIC: Negative for any joint pains, photosensitive rashes, history of vasculitis or kidney problems. HEMATOLOGIC: Negative for any abnormal bruising, frequent infections or bleeding. PHYSICAL EXAM: GENERAL: Alert and oriented x 3. No acute distress. Well-nourished. EYES: EOMI. Anicteric. HENT: Moist mucous membranes. No scleral icterus. No cervical lymphadenopathy. LUNGS: Clear to auscultation bilaterally. No accessory muscle use. CARDIOVASCULAR: Regular rate and rhythm. No murmur. No JVD. ABDOMEN: Soft, non-tender and non-distended. No palpable masses. EXTREMITIES: No edema. Non-tender. SKIN: No rashes or lesions. Warm. NEUROLOGIC: No focal neurological deficits. CN II-XII grossly intact, but not individually tested. PSYCHIATRIC: Cooperative. Appropriate mood and affect. LABORATORY: [ ] Hematology Labs: Test 04/21/24 04:00 Range/Units White Blood Count 20.3 H 4.8-10.8 K/uL Red Blood Count 5.60 4.50-6.20 MIL/uL Hemoglobin 14.7 14.0-18.0 g/dL Hematocrit 45.3 42-54 % Mean Corpuscular Volume 80.9 79-99 fL Mean Corpuscular Hemoglobin 26.3 L 27.0-33.0 pg Mean Corpuscular Hemoglobin Concent 32.5 32.0-36.0 g/dL Red Cell Distribution Width 14.1 11.0-15.5 % Platelet Count 353 130-400 K/uL Mean Platelet Volume 9.5 7.5-10.5 fL Immature Granulocyte % (Auto) 0.7 0-1 % Neutrophils (%) (Auto) 73.7 40.0-77.0 % Lymphocytes (%) (Auto) 15.0 L 21.0-51.0 % Monocytes (%) (Auto) 10.1 3.0-13.0 % Eosinophils (%) (Auto) 0.3 0.0-8.0 % Basophils (%) (Auto) 0.2 0.0-5.0 % Neutrophils # (Auto) 15.0 H 1.8-7.7 K/uL Lymphocytes # (Auto) 3.1 1.0-4.8 K/uL Monocytes # (Auto) 2.1 H 0.1-1.0 K/uL Eosinophils # (Auto) 0.06 0.00-0.70 K/uL Basophils # (Auto) 0.04 0.00-0.20 K/uL Absolute Immature Granulocyte (auto 0.14 0-1 K/uL Nucleated Red Blood Cells 0.0 0.0-0.19 % Chemistry Labs: Test 04/21/24 11:14 04/21/24 04:00 04/20/24 04:30 Range/Units Whole Blood Glucose 201 H 70-110 MG/DL Sodium Level 138 136-145 mmol/L Potassium Level 4.0 3.5-5.1 mmol/L Chloride Level 104 101-111 mmol/L Carbon Dioxide Level 31 21-32 mmol/L Blood Urea Nitrogen 42 H 7-18 mg/dL Creatinine 1.6 H 0.5-1.3 mg/dL Glomerular Filtration Rate Calc 60 >90 mL/min Random Glucose 94 # 70-105 mg/dL Total Calcium 8.0 L 8.5-10.1 mg/dL Phosphorus Level 5.3 H 2.5-4.9 mg/dL Magnesium Level 2.00 1.80-2.40 mg/dL Hemoglobin A1c 7.4 H 4.0-6.0 % Estimated Average Glucose (eAG) 166 H 70-126 mg/dL Total Bilirubin 0.3 0.2-1.0 mg/dL Aspartate Amino Transf (AST/SGOT) 226 H 10-37 U/L Alanine Aminotransferase (ALT/SGPT) 43 12-78 U/L Alkaline Phosphatase 43 L 50-136 U/L Total Protein 4.4 L 6.0-8.3 g/dL Albumin 0.7 L 3.5-5.0 g/dL DIAGNOSTICS / RADIOLOGY: REASON: stemi ORDERING PHYSICIAN: KAYLA RICHARDS MD PROCEDURE: ECHO [facility] - ECHO 2-D COMPLETE APPROVED REPORT EXAM: Two-dimensional and M-mode echocardiogram with Doppler and color Doppler. INDICATION ICD: ST-elevation [place] RCA I21.11 2D Dimensions RVDd 3.2 cm LVEF(%) 37.6 (>50%) LVED Vol(simp.) 51.5 mL IVSd 1.5 (0.7-1.1cm) FS(%) 18 % LA ESV INDEX (4CH) 10.90 mL/m2 LVDd 3.4 (3.8-5.6cm) LA (2D) 2.3 (1.6-4.0cm) LA ESV INDEX (2CH) 13.70 mL/m2 PWd 1.3 (0.7-1.1cm) Ao Root(2D) 2.5 (2.0-3.7cm) LA ESV INDEX (BP) 11.90 mL/m2 IVSs 1.9 cm LVOT diam 2.1 (1.8-2.4cm) LVDs 2.8 (2.5-4.0cm) PWs 1.7 cm M-Mode Dimensions EPSS 0.3 cm LA (MM) 2.0 (1.6-4.0cm) Ao Root(MM) 2.9 (2.0-3.7cm) Aortic Valve AoV VTI 0.2 m Ao Mean GR 1.0 mmHg LVOT VTI 0.10 m Mitral Valve MV E Vmax 50.6 cm/s DECEL Time 139 ms MV A Vmax 53.3 cm/s P 1/2 T 43 ms E/A ratio 0.9 MVA (PHT) 5.2 cm2 TDI E/E' Medial 11.0 E/E' Lateral 9.7 Medial E' Peak V 4.60 cm/s Lateral E' Peak V 5.20 cm/s Left Ventricle Left ventricular cavity size is normal. There is normal LV segmental wall motion. Moderate to severe concentric left ventricular hypertrophy. LVEF is55- 60%. The left ventricular diastolic function is normal. Right Ventricle The right ventricle is normal size. Right ventricular systolic function is mildly reduced. Atria The left atrium is small. The right atrium size is normal. Aortic Valve The aortic valve is normal in structure and function. No aortic regurgitation is present. There is no aortic valvular stenosis. Mitral Valve The mitral valve is normal in structure and function. There is no mitral valve regurgitation noted. There is no mitral valve stenosis. Tricuspid Valve The tricuspid valve is normal in structure and function. There is no tricuspid valve regurgitation noted. Pulmonic Valve The pulmonary valve is normal in structure and function. There is no pulmonic valvular regurgitation. Great Vessels The aortic root is normal in size. The IVC is normal in size and collapses >50% with inspiration. Pericardium No pericardial effusion. Conclusion LVEF is55-60%. Moderate to severe concentric left ventricular hypertrophy. DICTATED BY: PHILIPPE PENN MD DATE: 04/19/24918 REASON: CP ORDERING PHYSICIAN: DARON MARSH DO PROCEDURE: CXR1VW - CHEST 1VW CHEST 1VW REASON: CP COMPARISON: 09/27/2021 FINDINGS: Single view of the chest was obtained. Lungs are clear. Heart size is normal. There is no pulmonary vascular congestion. Mediastinum and bony thorax appear unremarkable. IMPRESSION: 1. Normal single view chest x-ray. DICTATED BY: CARRILLO BRAVO MD DATE: 04/19/2433 ASSESSMENT: Nephrotic syndrome on chronic steroids Inferior STEMI Immunocompromised status Type 2 diabetes Hypertension Hyperlipidemia Obesity PLAN: Labs, diagnostic, radiologic exams reviewed and interpreted by myself and supervising physician. We have reviewed external records in detail Continue with the immunosuppressive medications. Follow Cardiology recommendations Pending tacrolimus level. Require close monitoring of renal function and electrolytes Order CBC, CMP, and electrolytes in am Continue with antibiotics Renal diabetic diet BiPAP as necessary, for respiratory distress IV pressors as needed Monitor blood pressure adjust medication doses as needed Avoid hypotensive episodes May use Dilaudid 0.5 mg IV every 6 hours as needed for severe pain Monitor blood sugars Strict intake, output, and daily weight should be monitored Please renally adjust medications Avoid nephrotoxic and nonsteroidal drugs Avoid contrast if possible Will continue to monitor renal function, anemia, electrolytes Treatment plan discussed with patient Questions were answered We have discussed with the other team physicians in detail about the care plan We will continue to monitor the patient closely Total critical care time spent with patient, nursing staff, critical care team over 35 minutes ATTESTATION BY PHYSICIAN I have seen and examined the patient. I reviewed the documentation, medical decision making, and treatment plan as noted by the mid-level provider above. I agree with the findings and plan of care. MARCO A CADENA MD, [facility] Apr 21, 2024 15:31
[2024-04-21] MEDS: metoPROLOL tartRATE 50 MG TAB PO SCH (21:35)
[2024-04-22] VITALS: BP 113/60; PULSE 76; RESP 18
[2024-04-22 04:00] VITALS: BP 108/55; PULSE 81; RESP 17
[2024-04-22 04:58] LABS: CREATININE 1.2 mg/dL (0.5-1.3); POTASSIUM 4.3 mmol/L (3.5-5.1)
[2024-04-22 06:28] LABS: HEMATOCRIT 42.5 % (42-54); MEAN CORPUSCULAR HEMOGLOBIN 26.4 pg (27.0-33.0); MEAN CORPUSCULAR HGB CONC 33.2 g/dL (32.0-36.0); MEAN CORPUSCULAR VOLUME 79.6 fL (79-99); RED BLOOD CELL COUNT(AUTO) 5.34 MIL/uL (4.50-6.20); RED CELL DISTRIBUTION WIDTH 14.4 % (11.0-15.5); WHITE BLOOD COUNT (AUTO) 17.6 K/uL (4.8-10.8)
[2024-04-22 07:45] VITALS: O2SAT 96
[2024-04-22 08:00] VITALS: BP 123/51; PULSE 82; RESP 22; TEMP 98.8
--- NOTE | 2024-04-22 09:43 | PN ---
This is a 29-year-old male with a history of nephrotic syndrome on chronic prednisone, hypertension, hyperlipidemia and type 2 diabetes mellitus. He was admitted 04/19/2024 secondary to an inferior wall STEMI. He was found to have 90-95% thrombotic lesion to the distal RCA and 100% thrombotic occlusion to the distal posterolateral branch status post PTCA/PCI to the distal RCA x1 and field aspiration thrombectomy of the distal posterolateral branch. He completed Integrilin times 16 hours. He is on dual antiplatelet therapy with aspirin 81 mg once daily and ticagrelor 90 mg twice daily. He was seen by Hematology in his undergoing workup for hypercoagulable state. Echocardiogram 04/19/2024 demonstrates an ejection fraction of 55-60% with moderate to severe LVH, without significant valvular abnormalities noted. He is currently in sinus tachycardia with heart rates in the 90s to 100s. Yesterday carvedilol was discontinued and he was transitioned to metoprolol tartrate 50 mg twice daily. His most recent blood pressure is 108/55. He is doing well this morning and denies new cardiac complaints. He states that the chest pain with deep breathing has resolved. He denies palpitations, shortness or breath or dizziness. On exam, he is in no acute distress, regular rhythm, tachycardic, lungs are clear to auscultation bilaterally, no lower extremity edema is noted. Assessment: 1. Inferior wall STEMI status post PTCA/PCI to the distal RCA x1 and failed aspiration thrombectomy of the distal posterolateral branch. 2. Preserved LVEF with moderate to severe LVH. 3. Nephrotic syndrome on chronic prednisone. 4. Type 2 diabetes mellitus. 5. Hypertension. 6. Hyperlipidemia. Plan: 1. He presented with an inferior wall STEMI 04/19/2024 and underwent intervention to the distal RCA. Continue aspirin 81 mg once daily, ticagrelor 90 mg twice daily and atorvastatin 40 mg once daily. 2. We will titrate metoprolol tartrate to 100 mg twice daily for better rate control and taper losartan to 25 mg once daily. 3. He has been seen by Hematology and his undergoing hypercoagulable workup. He may require anticoagulation once this is complete. 4. Continue management as per Nephrology. We will follow the patient. Vitals/Labs Vital Signs Date Time Temp Pulse Resp B/P (MAP) Pulse Ox O2 Delivery O2 Flow Rate FiO2 04/22/24 07:45 90s-100 96 Room Air* 0 21 04/22/24 04:00 81 17 108/55 04/21/24 19:45 98.2 Laboratory Tests 04/22/24 04:05 04/22/24 06:18 SCARLETT MÉNDEZ Apr 22, 2024 09:43
[2024-04-22] MEDS: LoSARTan 25 MG TABLET PO SCH (10:00)
--- NOTE | 2024-04-22 10:07 | PN ---
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 He presented to emergency room with complaints of chest pain. He was found to have STEMI. Left heart catheterization showed Normal coronary anatomy and severe thrombotic obstructive RCA disease. Status post successful PTCA/PCI of the distal RCA x1 (3.5 x 18 mm oleksandr [place] drug-eluting stent) We have been consulted for renal failure and nephrotic syndrome. Renal function and electrolytes are stable at this time. Antihypertensive medication continues to be adjusted per Cardiology. Hematology workup is ongoing, he may require anticoagulation He has been resumed on immunosuppression medications Home medications were reviewed He was seen in the ICU, in no acute distress No family at the bedside Prognosis remains guarded REVIEW OF SYSTEMS: GENERAL: Positive for chest pain NEUROLOGIC: Negative for any blurry vision, blind spots, double vision, facial asymmetry, dysphagia, dysarthria, hemiparesis, hemisensory deficits, vertigo, ataxia. HEENT: Negative for any head trauma, neck trauma, neck stiffness, photophobia, phonophobia, sinusitis, rhinitis. CARDIAC: Negative for any chest pain, dyspnea on exertion, paroxysmal nocturnal dyspnea, peripheral edema. PULMONARY: Negative for any shortness of breath, wheezing, COPD, or TB exposure. GASTROINTESTINAL: Negative for any abdominal pain, nausea, vomiting, bright red blood per rectum, melena. GENITOURINARY: Negative for any dysuria, hematuria, incontinence. INTEGUMENTARY: Negative for any rashes, cuts, insect bites. RHEUMATOLOGIC: Negative for any joint pains, photosensitive rashes, history of vasculitis or kidney problems. HEMATOLOGIC: Negative for any abnormal bruising, frequent infections or bleeding. PHYSICAL EXAM: GENERAL: Alert and oriented x 3. No acute distress. Well-nourished. EYES: EOMI. Anicteric. HENT: Moist mucous membranes. No scleral icterus. No cervical lymphadenopathy. LUNGS: Clear to auscultation bilaterally. No accessory muscle use. CARDIOVASCULAR: Regular rate and rhythm. No murmur. No JVD. ABDOMEN: Soft, non-tender and non-distended. No palpable masses. EXTREMITIES: No edema. Non-tender. SKIN: No rashes or lesions. Warm. NEUROLOGIC: No focal neurological deficits. CN II-XII grossly intact, but not individually tested. PSYCHIATRIC: Cooperative. Appropriate mood and affect. LABORATORY: [ ] Hematology Labs: Test 04/22/24 06:18 04/21/24 04:00 Range/Units White Blood Count 17.6 H 4.8-10.8 K/uL Red Blood Count 5.34 4.50-6.20 MIL/uL Hemoglobin 14.1 14.0-18.0 g/dL Hematocrit 42.5 42-54 % Mean Corpuscular Volume 79.6 79-99 fL Mean Corpuscular Hemoglobin 26.4 L 27.0-33.0 pg Mean Corpuscular Hemoglobin Concent 33.2 32.0-36.0 g/dL Red Cell Distribution Width 14.4 11.0-15.5 % Platelet Count 359 130-400 K/uL Mean Platelet Volume 9.5 7.5-10.5 fL Nucleated Red Blood Cells 0.0 0.0-0.19 % Immature Granulocyte % (Auto) 0.7 0-1 % Neutrophils (%) (Auto) 73.7 40.0-77.0 % Lymphocytes (%) (Auto) 15.0 L 21.0-51.0 % Monocytes (%) (Auto) 10.1 3.0-13.0 % Eosinophils (%) (Auto) 0.3 0.0-8.0 % Basophils (%) (Auto) 0.2 0.0-5.0 % Neutrophils # (Auto) 15.0 H 1.8-7.7 K/uL Lymphocytes # (Auto) 3.1 1.0-4.8 K/uL Monocytes # (Auto) 2.1 H 0.1-1.0 K/uL Eosinophils # (Auto) 0.06 0.00-0.70 K/uL Basophils # (Auto) 0.04 0.00-0.20 K/uL Absolute Immature Granulocyte (auto 0.14 0-1 K/uL Chemistry Labs: Test 04/22/24 06:18 04/22/24 04:05 04/21/24 04:00 Range/Units Whole Blood Glucose 90 # 70-110 MG/DL Sodium Level 132 L 136-145 mmol/L Potassium Level 4.3 3.5-5.1 mmol/L Chloride Level 102 101-111 mmol/L Carbon Dioxide Level 24 21-32 mmol/L Blood Urea Nitrogen 41 H 7-18 mg/dL Creatinine 1.2 0.5-1.3 mg/dL Glomerular Filtration Rate Calc 84 >90 mL/min Random Glucose 82 70-105 mg/dL Total Calcium 7.8 L 8.5-10.1 mg/dL Phosphorus Level 5.3 H 2.5-4.9 mg/dL Magnesium Level 2.00 1.80-2.40 mg/dL DIAGNOSTICS / RADIOLOGY: REASON: stemi ORDERING PHYSICIAN: KAYLA RICHARDS MD PROCEDURE: ECHO CMP - ECHO 2-D COMPLETE APPROVED REPORT EXAM: Two-dimensional and M-mode echocardiogram with Doppler and color Doppler. INDICATION ICD: ST-elevation [place] RCA I21.11 2D Dimensions RVDd 3.2 cm LVEF(%) 37.6 (>50%) LVED Vol(simp.) 51.5 mL IVSd 1.5 (0.7-1.1cm) FS(%) 18 % LA ESV INDEX (4CH) 10.90 mL/m2 LVDd 3.4 (3.8-5.6cm) LA (2D) 2.3 (1.6-4.0cm) LA ESV INDEX (2CH) 13.70 mL/m2 PWd 1.3 (0.7-1.1cm) Ao Root(2D) 2.5 (2.0-3.7cm) LA ESV INDEX (BP) 11.90 mL/m2 IVSs 1.9 cm LVOT diam 2.1 (1.8-2.4cm) LVDs 2.8 (2.5-4.0cm) PWs 1.7 cm M-Mode Dimensions EPSS 0.3 cm LA (MM) 2.0 (1.6-4.0cm) Ao Root(MM) 2.9 (2.0-3.7cm) Aortic Valve AoV VTI 0.2 m Ao Mean GR 1.0 mmHg LVOT VTI 0.10 m Mitral Valve MV E Vmax 50.6 cm/s DECEL Time 139 ms MV A Vmax 53.3 cm/s P 1/2 T 43 ms E/A ratio 0.9 MVA (PHT) 5.2 cm2 TDI E/E' Medial 11.0 E/E' Lateral 9.7 Medial E' Peak V 4.60 cm/s Lateral E' Peak V 5.20 cm/s Left Ventricle Left ventricular cavity size is normal. There is normal LV segmental wall motion. Moderate to severe concentric left ventricular hypertrophy. LVEF is55- 60%. The left ventricular diastolic function is normal. Right Ventricle The right ventricle is normal size. Right ventricular systolic function is mildly reduced. Atria The left atrium is small. The right atrium size is normal. Aortic Valve The aortic valve is normal in structure and function. No aortic regurgitation is present. There is no aortic valvular stenosis. Mitral Valve The mitral valve is normal in structure and function. There is no mitral valve regurgitation noted. There is no mitral valve stenosis. Tricuspid Valve The tricuspid valve is normal in structure and function. There is no tricuspid valve regurgitation noted. Pulmonic Valve The pulmonary valve is normal in structure and function. There is no pulmonic valvular regurgitation. Great Vessels The aortic root is normal in size. The IVC is normal in size and collapses >50% with inspiration. Pericardium No pericardial effusion. Conclusion LVEF is55-60%. Moderate to severe concentric left ventricular hypertrophy. DICTATED BY: PHILIPPE PENN MD DATE: 04/19/24918 REASON: CP ORDERING PHYSICIAN: DARON MARSH DO PROCEDURE: CXR1VW - CHEST 1VW CHEST 1VW REASON: CP COMPARISON: 09/27/2021 FINDINGS: Single view of the chest was obtained. Lungs are clear. Heart size is normal. There is no pulmonary vascular congestion. Mediastinum and bony thorax appear unremarkable. IMPRESSION: 1. Normal single view chest x-ray. DICTATED BY: CARRILLO BRAVO MD DATE: 04/19/2477 ASSESSMENT: Nephrotic syndrome on chronic steroids Inferior STEMI Immunocompromised status Type 2 diabetes Hypertension Hyperlipidemia Obesity PLAN: Labs, diagnostic, radiologic exams reviewed and interpreted by myself and supervising physician. We have reviewed external records in detail Patient is to continue with current the immunosuppressive medication upon discharge Follow Cardiology recommendations Require close monitoring of renal function and electrolytes Order CBC, CMP, and electrolytes in am Continue with antibiotics Renal diabetic diet BiPAP as necessary, for respiratory distress IV pressors as needed Monitor blood pressure adjust medication doses as needed Avoid hypotensive episodes May use Dilaudid 0.5 mg IV every 6 hours as needed for severe pain Monitor blood sugars Strict intake, output, and daily weight should be monitored Please renally adjust medications Avoid nephrotoxic and nonsteroidal drugs Avoid contrast if possible Will continue to monitor renal function, anemia, electrolytes Treatment plan discussed with patient Questions were answered We have discussed with the other team physicians in detail about the care plan We will continue to monitor the patient closely Total critical care time spent with patient, nursing staff, critical care team over 35 minutes ATTESTATION BY PHYSICIAN I have seen and examined the patient. I reviewed the documentation, medical decision making, and treatment plan as noted by the mid-level provider above. I agree with the findings and plan of care. MARCO A CADENA MD, [facility] Apr 22, 2024 10:07
[2024-04-22] MEDS: metoPROLOL tartRATE 50 MG TAB PO ONE (10:19)
[2024-04-22 12:00] VITALS: BP 111/66; PULSE 79; RESP 26; TEMP 98.3
[2024-04-22] MEDS ORDERED: METO50 PO (14:20)
[2024-04-22] MEDS ORDERED: TICA90TA PO (14:20)
[2024-04-22] MEDS ORDERED: ASPI-1005 PO (14:20)
[2024-04-22] MEDS ORDERED: ATOR40TA69 PO (14:20)
[2024-04-22] MEDS ORDERED: LOSA-418 PO (14:20)
[2024-04-22] MEDS ORDERED: PRED20B PO (14:33)
--- NOTE | 2024-04-22 16:00 | NUR ---
DISCHARGE INSTRUCTIONS D/C INSTRUCTIONS GIVEN TO PT AND PT'S FATHER WHO IS AT BEDSIDE. NEW PRESCRIPTIONS SEND ELECTRONICALLY TO PREFERRED PHARMACY. INSTRUCTED PT TO CALL TOMORROW TO MAKE FOLLOW UP APPOINTMENTS. PT VERBALIZED UNDERSTANDING. 18 G IV TO RIGHT A/C D/C, 2X2 AND TAPE APPLIED. NO BLEEDING OR OOZING NOTED TO SITE.
--- NOTE | 2024-04-22 17:23 | DS ---
Discharge Summary Hospital Course Summary: 29-year-old male with past medical history of uncontrolled type 2 diabetes, hypertension, hyperlipidemia, nephrotic syndrome on chronic prednisone, obesity, presented to [facility] ED earlier today with complaints of anterior chest pain. Patient states pain woke him up from his sleep, and was associated with shortness of breath and diaphoresis. Patient rated pain 8/10 in severity. Due to persistence and worsening of symptoms he decided to come to the hospital for further evaluation. On arrival to ED EKG revealed significant changes in the inferior leads, ST elevations, and reciprocal ST depressions. A code STEMI was activated, ACS measures initiated. Consultation with Cardiology was obtained and patient was emergently sent to labor relations representative for coronary angiogram. Patient underwent successful PTCA/PCI of the distal RCA. Patient also received double bolus and infusion of Integrilin, as well as intracoronary Integrilin. Patient tolerated procedure well, transferred to ICU for continued observation and management. Post procedure his medications were adjusted by cardiology for better rate control. Nephrology was consulted for management of his nephrotic syndrome. He was continued on tacrolimus and prednisone. By hospital day 3 his medications were optimized and he was cleared for discharge by cardiology and nephrology and discharged home Snowboarder(s): Follow up with PCP in 3-7 days Follow up with fiber picker in 1-2 weeks Follow up with cardiology in 1-2 weeks Procedure(s): Echocardiogram Conclusion LVEF is55-60%. Moderate to severe concentric left ventricular hypertrophy. CHEST 1VW REASON: CP COMPARISON: 09/27/2021 FINDINGS: Single view of the chest was obtained. Lungs are clear. Heart size is normal. There is no pulmonary vascular congestion. Mediastinum and bony thorax appear unremarkable. IMPRESSION: 1. Normal single view chest x-ray. Assessment/Plan: Inferior STEMI POA Uncontrolled type 2 diabetes POA Essential hypertension POA Hyperlipidemia POA Nephrotic syndrome on chronic steroids POA Obesity Discharge Instructions: Follow up with PCP in 3-7 days Follow up with fiber picker in 1-2 weeks Follow up with cardiology in 1-2 weeks Home Medications: Active Scripts Prednisone (Deltasone/Orasone [Bulk]) 20 Mg Tab, 20 MG PO DAILY, #15 TAB Prov:JACOBY PARRA MD 04/22/24 Ticagrelor (Brilinta) 90 Mg Tablet, 90 MG PO BID, #60 TAB Prov:SCARLETT MÉNDEZ Ernesto PA 04/22/24 Metoprolol Tartrate (Lopressor 50Mg Tab) 50 Mg Tab, 50 MG PO BID, #60 TAB Prov:SCARLETT MÉNDEZ R PA 04/22/24 Losartan Potassium (Cozaar) 50 Mg Tablet, 50 MG PO DAILY, #30 TAB Prov:SCARLETT MÉNDEZ R PA 04/22/24 Atorvastatin Calcium (LIPITOR) 40 Mg Tablet, 40 MG PO HS, #30 TAB Prov:SCARLETT MÉNDEZ Ernesto PA 04/22/24 Aspirin (ASPIRIN 81MG CHEW TAB) 81 Mg Tab.chew, 81 MG PO DAILY, #30 TAB.CHEW Prov:SCARLETT MÉNDEZ Ernesto PA 04/22/24 Reported Medications Prednisone (Prednisone) 20 Mg Tablet, 20 MG PO DAILY, TAB 04/19/24 Ezetimibe/Rosuvastatin Calcium (Rosuvastatin-Ezetimibe 20-10Mg) 10 Mg-20 Mg Tablet, 1 TAB PO HS for 30 Days, #30 TAB 0 Refills 04/19/24 Metformin HCl (Metformin HCl) 500 Mg Tablet, 500 MG PO BID, TAB 09/27/21 Tacrolimus (Tacrolimus) 5 Mg Capsule, 5 MG PO BID, CAP 09/27/21 Insulin Aspart (Novolog) 100 Unit/1 Ml Cartridge, 10 UNITS SQ TIDMEALS, CARTRIDGE 09/27/21 Insulin Glargine,Hum.rec.anlog (Basaglar Kwikpen U-100) 100 Unit/1 Ml Insuln.pen, 50 UNIT SQ DAILY, SYRINGE 09/27/21 Discontinued Reported Medications Losartan Potassium (Losartan Potassium) 50 Mg Tablet, 50 MG PO DAILY, TAB 04/19/24 Torsemide (Torsemide) 100 Mg Tablet, 100 MG PO DAILY, TAB 09/27/21 Sulfamethoxazole/Trimethoprim (Sulfamethoxazole-Tmp Ss Tablet) 1 Each Tablet, 1 EACH PO BID, TAB 09/27/21 Discontinued Scripts Metronidazole (Metronidazole) 500 Mg Tablet, 500 MG PO TID for 10 Days, #30 TAB Prov:KATHLEEN GILL Sr., MD 08/03/22 Ondansetron (Ondansetron Odt) 4 Mg Tab.rapdis, 4 MG PO Q6HPRN PRN for nausea, #16 TAB 0 Refills Prov:KATHLEEN GILL Sr., MD 08/03/22 Acetaminophen with Codeine (Acetaminophen-Cod #3 Tablet) 1 Each Tablet, 1 TAB PO Q6H PRN for PAIN LEVEL 7 TO 10, #15 TAB Prov:DELGADO CARTER MD 10/05/21 Rivaroxaban (Xarelto) 1 Each Tab.ds.pk, 1 EACH PO AD, #1 KIT Prov:DELGADO CARTER MD 10/05/21 Pantoprazole Sodium (Protonix) 40 Mg Ectab, 40 MG PO DAILY for 90 Days, #90 TAB.EC Prov:MORENO DAILEY Jr., MD 10/01/21 Prednisone (Prednisone) 20 Mg Tablet, 60 MG PO DAILY for 30 Days, #90 TAB Prov:MORENO DAILEY Jr., MD 10/01/21 Atorvastatin Calcium (LIPITOR) 40 Mg Tablet, 40 MG PO HS for 90 Days, #90 TAB Prov:MORENO DAILEY Jr., MD 10/01/21 New Medications: Aspirin (Aspirin 81MG Chew Tab) 81 Mg Tab.chew 81 MG PO DAILY, #30 TAB.CHEW Atorvastatin Calcium (Lipitor) 40 Mg Tablet 40 MG PO HS, #30 TAB Losartan Potassium (Cozaar) 50 Mg Tablet 50 MG PO DAILY, #30 TAB Metoprolol Tartrate (Lopressor 50Mg Tab) 50 Mg Tab 50 MG PO BID, #60 TAB Prednisone (Deltasone/Orasone [Bulk]) 20 Mg Tab 20 MG PO DAILY, #15 TAB Ticagrelor (Brilinta) 90 Mg Tablet 90 MG PO BID, #60 TAB Continued Medications: Ezetimibe/Rosuvastatin Calcium (Rosuvastatin-Ezetimibe 20-10Mg) 10 Mg-20 Mg Tablet 1 TAB PO HS for 30 Days, #30 TAB 0 Refills Insulin Aspart (Novolog) 100 Unit/1 Ml Cartridge 10 UNITS SQ TIDMEALS, CARTRIDGE Insulin Glargine,Hum.rec.anlog (Basaglar Kwikpen U-100) 100 Unit/1 Ml Insuln.pen 50 UNIT SQ DAILY, SYRINGE Metformin HCl (Metformin HCl) 500 Mg Tablet 500 MG PO BID, TAB Prednisone (Prednisone) 20 Mg Tablet 20 MG PO DAILY, TAB Tacrolimus (Tacrolimus) 5 Mg Capsule 5 MG PO BID, CAP Discontinued Medications: Losartan Potassium (Losartan Potassium) 50 Mg Tablet 50 MG PO DAILY, TAB Time spent arranging discharge: 31-60 minutes JACOBY PARRA MD Apr 22, 2024 17:23
[2024-04-22] MEDS ORDERED: metoPROLOL tartRATE 50 MG TAB PO SCH ×2 (21:00)
[2024-04-23 07:11] LABS: PROTEIN S, FREE 87 % (61-136)
[2024-04-23] MEDS ORDERED: LoSARTan 50 MG TABLET PO SCH (09:00)
[2024-04-25 00:08] LABS: PROTEIN C AG-TOTAL 82 % (60-150)
== END 2024-04-22 16:33 | disposition home or self-care (01) | DRG 174 ==
LOC: EDH 03:01 → 2CV 03:02 → 2BH 04-21 06:20
PROVIDERS: ADMIT Internal Medicine; ATTEND Internal Medicine
PROC: 02703DZ Dilation of Coronary Artery, One Artery with Intraluminal Device, Percutaneous Approach (ICD-10-PCS; principal; 2024-04-19)
PROC: 4A023N7 Measurement of Cardiac Sampling and Pressure, Left Heart, Percutaneous Approach (ICD-10-PCS; 2024-04-19)
PROC: B2111ZZ Fluoroscopy of Multiple Coronary Arteries using Low Osmolar Contrast (ICD-10-PCS; 2024-04-19)
PROC: B41F1ZZ Fluoroscopy of Right Lower Extremity Arteries using Low Osmolar Contrast (ICD-10-PCS; 2024-04-19)
DX: I21.19 ST elevation (STEMI) myocardial infarction involving other coronary artery of inferior wall (principal); D84.9 Immunodeficiency, unspecified; N04.9 Nephrotic syndrome with unspecified morphologic changes; I25.10 Atherosclerotic heart disease of native coronary artery without angina pectoris; E66.9 Obesity, unspecified; I10 Essential (primary) hypertension; E11.9 Type 2 diabetes mellitus without complications; E78.00 Pure hypercholesterolemia, unspecified; Z79.52 Long term (current) use of systemic steroids; Z88.8 Allergy status to other drugs, medicaments and biological substances; Z95.5 Presence of coronary angioplasty implant and graft; Z79.4 Long term (current) use of insulin; Z79.899 Other long term (current) drug therapy; Z79.84 Long term (current) use of oral hypoglycemic drugs; Z79.01 Long term (current) use of anticoagulants; Z68.32 Body mass index [BMI] 32.0-32.9, adult
CPT/HCPCS: 36140; 36415; 36600; 71045; 80048; 80053; 80197; 80305; 81001; 82435; 82570; 82803; 82947; 82948; 83036; 83605; 83735; 84100; 84132; 84156; 84295; 84484; 85018; 85025; 85027; 85300; 85302; 85303; 85305; 85306; 85347; 85610; 85730; 92973; 93005; 93306; 93458; 96374; 96375; 99156; 99157; 99291; C1760; C1769; C1887; C1894; C9606; G0378; J0461; J1327; J1644; J2250; J3010; J3475; J3490; J7507; Q9967; C1725; C1874